=== PATIENT | male | born 1940 | race Caucasian/White ===

== ENCOUNTER 2018-11-01 12:45 | Inpatient (IN) | payer MEDICAID ==
[~2018-11-01] VITALS: Ht 162.6 cm; Wt 85.7 kg
[2018-11-01 13:00] VITALS: BP 142/96
--- NOTE | 2018-11-01 14:25 | NUR ---
PT TO ER BED 1
--- NOTE | 2018-11-01 14:45 | NUR ---
PT IS A 78 Y/O MALE WHO PRESENTS TO THE ED C/O CHEST PAIN. PER PT WAS REFERRED BY PCP. PT STATES THAT I HAVE FLUID IN MY LUNGS. PT REPORTS 8/10 ACHING CHEST PAIN THAT DOES NOT RADIATE. PT DENIES SOB, N/V/D. PT AWAKE AND ALERT, RR EVEN/UNLABORED. PT REPOSITIONED FOR COMFORT, BED IN LOWEST POSITION. ER MD DR. PILLAI NOTIFIED. WILL CONTINUE TO MONITOR. PMH---HF, HTN NKA
[2018-11-01 15:58] LABS: BASOPHILS % (AUTO) 0.5 % (0.0-2.0); EOSINOPHILS % (AUTO) 0.7 % (0.0-4.0); HEMATOCRIT 37.8 % (36-52); HEMOGLOBIN 12.1 g/dL (12.0-18.0); LYMPHOCYTES # (AUTO) 1.7 K/uL (2.0-11.5); LYMPHOCYTES % (AUTO) 27.3 % (20.5-51.1); MEAN CORPUSCULAR HEMOGLOBIN 30 pg (27-31); MEAN CORPUSCULAR HGB CONC 32 g/dL (33-37); MEAN CORPUSCULAR VOLUME 93.5 fL (80-94); MONOCYTES # (AUTO) 0.8 K/uL (0.8-1.0); MONOCYTES % (AUTO) 12.8 % (1.7-9.3); NEUTROPHILS # (AUTO) 3.6 K/uL (1.8-7.7); NEUTROPHILS % (AUTO) 58.7 % (42.2-75.2); PLATELET COUNT (AUTO) 212 K/uL (140-450); RED BLOOD CELL COUNT(AUTO) 4.04 MIL/uL (4.20-6.10); RED CELL DISTRIBUTION WIDTH 15.5 % (11.6-13.7); WHITE BLOOD COUNT (AUTO) 6.1 K/uL (4.8-10.8)
[2018-11-01 16:16] LABS: ANION GAP 14.9 (8-16); CARBON DIOXIDE 28.1 mmol/L (21-32); CHLORIDE 106 mmol/L (98-107); CREATININE 1.1 mg/dL (0.7-1.3); GLUCOSE 96 mg/dL (74-106); SODIUM SERUM 145 mmol/L (136-145); UREA NITROGEN, BLOOD 31 mg/dL (7-18)
[2018-11-01 16:18] LABS: ALBUMIN 3.4 g/dL (3.4-5.0); ASPARTATE AMINOTRANSFERASE 33 U/L (15-37); TOTAL BILIRUBIN 1.5 mg/dL (0.0-1.0)
--- NOTE | 2018-11-01 16:59 | NUR ---
Maricruz thompson in [facility] - 11/01/18 at [address] iDez evaluating patient at bedside.
[2018-11-01] MEDS ORDERED: FUROSEMIDE 40 MG/4 ML VIAL IVP SCH (17:00)
[2018-11-01] MEDS ORDERED: ACETAMINOPHEN 325 MG TAB PO PRN (17:20)
[2018-11-01] MEDS ORDERED: MELATONIN 3 MG TAB PO PRN (17:20)
[2018-11-01] MEDS ORDERED: HYDROcodone/APAP 7.5/325 MG 1 TAB PO PRN (17:20)
[2018-11-01] MEDS ORDERED: MEDICATION REC. PHARMACY CONS. 1 EA MISC MC PRN (17:20)
[2018-11-01] MEDS ORDERED: ONDANSETRON 4 MG/2 ML VIAL IVP PRN (17:20)
--- NOTE | 2018-11-01 18:00 | NUR ---
Patient will be admitted to care of DR. CALIXTO. Admited to TELE. Will go to room 127B. Belongings list completed. Report to [facility].
[2018-11-01 18:10] VITALS: BP 143/92
--- NOTE | 2018-11-01 18:10 | NUR ---
PT ARRIVED TO [facility] UNIT VIA ER BED, SPOUSE AT BEDSIDE. PT A/O ABLE TO COMMUNICATE NEEDS. PT DENIES PAIN, DENIES CP, DENIES SOB. ORIENTED TO ROOM AND UNIT. NO S/S OF ACUTE DISTRESS NOTED AT THIS TIME, CALL LIGHT AND PERSONAL ITEMS WITHIN REACH, WILL CONTINUE TO MONITOR.
--- NOTE | 2018-11-01 19:31 | NUR ---
PT AWAKE A/O ABLE TO COMMUNICATE NEEDS, NO S/S OF ACUTE DISTRESS NOTED AT THIS TIME, CALL LIGHT AND PERSONAL ITEMS WITHIN REACH, REPORT ENDORSED TO ONCOMING NURSE.
--- NOTE | 2018-11-01 19:35 | NUR ---
RECEIVED PT AM SHIFT NURSE AND PT AWAKE, ALERT, O X 4. PT IN BED, SEMI ECKERT'S POSITION PT AMBULATORY.ONGOING HISTORY TAKEN USING LABORER/GRADE CHECK ADOLFO LOPEZ # [id number]. W/ AT BEDSIDE, AND RESIDENT ASSESSMENT DONE, PT ONGOING ASSESSMENT FOR FALL RISK. POC REVIEWED. ORIENTED TO UNIT.PLACED CALL LIGHT AT BEDSIDE. DIM LIGHTS.
[2018-11-01 19:37] LABS: FREE T4 (FREE THYROXINE) 1.5 ng/dL (0.76-1.46); MAGNESIUM 2.1 mg/dL (1.8-2.4); PHOSPHORUS 3.5 mg/dL (2.5-4.9); THYROID STIMULATING HORMONE 0.5 uIU/mL (0.34-3.74)
[2018-11-01 19:41] LABS: PROTHROMBIN TIME 11.8 secs (10.8-13.4)
--- NOTE | 2018-11-01 19:57 | NUR ---
PT AMBULATORY W/ SB ASSIST, ON FALL RISK. FALL RISK PROTOCOL IN PLACE
[2018-11-01 20:00] VITALS: BP 143/92
[2018-11-01] MEDS ORDERED: CARVEDILOL 6.25 MG TAB PO SCH (21:00)
[2018-11-01] MEDS: NACL 0.9% 1,000 ML IV SCH (21:43)
[2018-11-01] MEDS: ATORVASTATIN 20 MG TAB PO SCH (21:46)
[2018-11-01] MEDS: DOCUSATE SODIUM 100 MG GELCAP PO SCH (21:47)
[2018-11-01] MEDS ORDERED: PROMETHAZINE DM 6.25/15MG-5ML ORASYR PO PRN (22:10)
[2018-11-01 22:57] LABS: APPEARANCE,URINE CLEAR (CLEAR); BILIRUBIN,URINE NEGATIVE (NEGATIVE); BLOOD, URINE TRACE-I (NEGATIVE); COLOR,URINE YELLOW (YELLOW); LEUKOCYTE ESTERASE ,URINE NEGATIVE (NEGATIVE); NITRITE, URINE NEGATIVE (NEGATIVE); UGLUCOSE NEGATIVE (NEGATIVE)
[2018-11-01 23:18] LABS: RBC,URINE 0-5 /HPF (0-5); WBC,URINE 0-5 /HPF (0-5)
[2018-11-02] VITALS: BP 120/70
[2018-11-02 04:00] VITALS: BP 127/76
[2018-11-02] MEDS: PANTOPRAZOLE 40 MG TABEC PO SCH (05:45)
--- NOTE | 2018-11-02 05:50 | NUR ---
REVIEWED EKG ORDER WITH DR JENELLE WRIGHT REASON FOR EXAM: CHEST R/O ACS
[2018-11-02 06:29] LABS: ANION GAP 12.2 (8-16); CARBON DIOXIDE 28.4 mmol/L (21-32); CHLORIDE 107 mmol/L (98-107); CREATININE 1.2 mg/dL (0.7-1.3); GLUCOSE 97 mg/dL (74-106); POTASSIUM 3.6 mmol/L (3.5-5.1); SODIUM SERUM 144 mmol/L (136-145); UREA NITROGEN, BLOOD 29 mg/dL (7-18)
[2018-11-02] MEDS ORDERED: LANSOPRAZOLE 30 MG CAPDR PO SCH (06:30)
[2018-11-02 06:44] LABS: CHOL/HDL RATIO 3.2 (1-4.5); PHOSPHORUS 3.8 mg/dL (2.5-4.9)
--- NOTE | 2018-11-02 07:03 | NUR ---
PT AWAKE IN BED WILL ENDORSE TO NEXT SHIFT FOR CONTINUITY OF CARE. PT IN STABLE CONDITION
--- NOTE | 2018-11-02 07:04 | NUR ---
RECEIVED BEDSIDE REPORT FROM INSPECTOR FINAL ASSEMBLY CONVEYOR LINE NURSE. PATIENT IS AWAKE, ALERT AND ORIENTEDX4. NEPALESE SPEAKER. NO SIGNS OF DISTRESS ON RA. GAIT IS STEADY. PATIENT IS CONTINENT. SKIN IS INTACT. IV ON L FA 20G INFUSING NS AT 10. CLEAN, DRY AND INTACT. TELE MONITOR IN PLACE. PATIENT ABLE TO MAKE NEEDS KNOWN. WILL CONTINUE TO MONITOR. BED IN LOW POSITION.
[2018-11-02 07:39] LABS: BASOPHILS % (AUTO) 0.5 % (0.0-2.0); EOSINOPHILS # (AUTO) 0.1 K/uL (0-0.4); EOSINOPHILS % (AUTO) 1.5 % (0.0-4.0); HEMATOCRIT 36.2 % (36-52); HEMOGLOBIN 11.8 g/dL (12.0-18.0); LYMPHOCYTES # (AUTO) 1.4 K/uL (2.0-11.5); LYMPHOCYTES % (AUTO) 22.7 % (20.5-51.1); MEAN CORPUSCULAR HEMOGLOBIN 30 pg (27-31); MEAN CORPUSCULAR HGB CONC 32 g/dL (33-37); MEAN CORPUSCULAR VOLUME 92.7 fL (80-94); MONOCYTES # (AUTO) 0.8 K/uL (0.8-1.0); MONOCYTES % (AUTO) 13.5 % (1.7-9.3); NEUTROPHILS # (AUTO) 3.8 K/uL (1.8-7.7); NEUTROPHILS % (AUTO) 61.8 % (42.2-75.2); PLATELET COUNT (AUTO) 207 K/uL (140-450); RED BLOOD CELL COUNT(AUTO) 3.91 MIL/uL (4.20-6.10); RED CELL DISTRIBUTION WIDTH 15.4 % (11.6-13.7); WHITE BLOOD COUNT (AUTO) 6.1 K/uL (4.8-10.8)
[2018-11-02 08:00] VITALS: BP 125/81
--- NOTE | 2018-11-02 08:20 | NUR ---
PATIENT HAS BEEN SCREENED AND CATEGORIZED MODERATE NUTRITION RISK. PATIENT WILL BE SEEN WITHIN 3-5 DAYS OF ADMISSION. 11/05/18[address]
[2018-11-02] MEDS: CARVEDILOL 6.25 MG TAB PO SCH ×2 (08:54→17:49)
[2018-11-02] MEDS: DOCUSATE SODIUM 100 MG GELCAP PO SCH ×2 (08:54→20:35)
[2018-11-02] MEDS: LOSARTAN 25 MG TAB PO SCH (08:55)
[2018-11-02] MEDS ORDERED: FUROSEMIDE 20 MG/2 ML VIAL IVP ONE (09:00)
--- NOTE | 2018-11-02 09:06 | NUR ---
ADMINISTERED MEDS. EDUCATED PATIENT ON SIDE EFFECTS. PATIENT TOLERATED WELL AND VERBALIZED UNDERSTANDING. PATIENT ABLE TO MAKE NEEDS KNOWN. IS AT BEDSIDE. CALL LIGHT WITHIN REACH. WILL CONTINUE TO MONITOR
--- NOTE | 2018-11-02 11:20 | NUR ---
PATIENT AMBULATED TO THE RESTROOM. GAIT IS STEADY. WILL CONTINUE TO MONITOR THE PATIENT.
[2018-11-02 12:00] VITALS: BP 120/68
--- NOTE | 2018-11-02 12:01 | NUR ---
FAMILY AT BEDSIDE. PATIENT IN NO DISTRESS. CALL LIGHT WITHIN REACH. WILL CONTINUE TO MONITOR THE PATIENT
--- NOTE | 2018-11-02 13:31 | NUR ---
PATIENT JUST FINISHED LUNCH. NO DISTRESS AT THIS TIME. IN BED RESTING COMFORTABLY. WILL CONTINUE TO MONITOR THE PATIENT
--- NOTE | 2018-11-02 14:44 | NUR ---
PATIENT LAYING IN BED. NO COMPLAINTS AT THIS TIME. BED IN LOW POSITION. CALL LIGHT WITHIN REACH. WILL CONTINUE TO MONITOR THE PATIENT
--- NOTE | 2018-11-02 15:24 | NUR ---
PATIENT IN BED. NO SIGNS OF DISTRESS, FAMILY AT BEDSIDE
[2018-11-02 16:00] VITALS: BP 120/77
[2018-11-02] MEDS: NACL 0.9% 1,000 ML IV SCH (17:20)
--- NOTE | 2018-11-02 17:49 | NUR ---
ADMINISTERED [facility]. EDUCATED ON SIDE EFFECTS. PATIENT TOLERATED WELL. PATIENT SITTING IN CHAIR IN NO DISTRESS. WILL CONTINUE TO MONITOR THE PATIENT
--- NOTE | 2018-11-02 19:06 | NUR ---
GAVE BEDSIDE REPORT TO SUBSCRIPTION CREW LEADER NURSE. PATIENT ENDORSED IN STABLE CONDITION
--- NOTE | 2018-11-02 19:15 | NUR ---
RECEIVED PT FROM VISHNU RN PT SYRIAC SPEAKER AAOX4, AMBULATORY HL ON LEFT AC PATENT, ON TELMETRY SR DENIES ANY PAIN INITIAL ASSESSMENT DONE
[2018-11-02 20:00] VITALS: BP 127/77
[2018-11-02] MEDS: ATORVASTATIN 20 MG TAB PO SCH (20:34)
--- NOTE | 2018-11-02 21:00 | NUR ---
PT AMBULATES AROUND THE UNIT HOLDING IV POLE RELATIVE AT PT SIDE
--- NOTE | 2018-11-03 | NUR ---
PT HAS BEEN MONITORING CLOSE SLEEPING WELL AT THIS TME NOT SIGNS OF DISTRESS NOTED , ON TELEMETRY SR
--- NOTE | 2018-11-03 02:57 | NUR ---
REPOSITIONED Q2H HIMSELF ON TELE SR PT REMAIN STABLE AT THIS TIME.
[2018-11-03 04:00] VITALS: BP 130/75
--- NOTE | 2018-11-03 05:13 | NUR ---
SPONGE BATH GIVEN LINEN CHANGED REPOSITIONED ON TELE SR BBB NOT DISTRESS NOTED
[2018-11-03] MEDS: PANTOPRAZOLE 40 MG TABEC PO SCH (05:47)
--- NOTE | 2018-11-03 06:48 | NUR ---
PT VERBALIZED TOFEELS BETTER DENIES ANY PAIN ON TELEMETRY SR PT WILL BE ENDORSED TODAY SHIFT FOR CONTINUITY OF CARE .
[2018-11-03 07:01] LABS: BASOPHILS % (AUTO) 0.6 % (0.0-2.0); EOSINOPHILS # (AUTO) 0.2 K/uL (0-0.4); EOSINOPHILS % (AUTO) 2.1 % (0.0-4.0); HEMATOCRIT 38.3 % (36-52); HEMOGLOBIN 12.5 g/dL (12.0-18.0); LYMPHOCYTES # (AUTO) 1.6 K/uL (2.0-11.5); LYMPHOCYTES % (AUTO) 21.9 % (20.5-51.1); MEAN CORPUSCULAR HEMOGLOBIN 30 pg (27-31); MEAN CORPUSCULAR HGB CONC 33 g/dL (33-37); MEAN CORPUSCULAR VOLUME 92.9 fL (80-94); MONOCYTES # (AUTO) 0.9 K/uL (0.8-1.0); MONOCYTES % (AUTO) 12.9 % (1.7-9.3); NEUTROPHILS # (AUTO) 4.4 K/uL (1.8-7.7); NEUTROPHILS % (AUTO) 62.5 % (42.2-75.2); PLATELET COUNT (AUTO) 204 K/uL (140-450); RED BLOOD CELL COUNT(AUTO) 4.12 MIL/uL (4.20-6.10); RED CELL DISTRIBUTION WIDTH 15.2 % (11.6-13.7); WHITE BLOOD COUNT (AUTO) 7.1 K/uL (4.8-10.8)
[2018-11-03 07:05] LABS: CARBON DIOXIDE 28.8 mmol/L (21-32); CHLORIDE 105 mmol/L (98-107); CREATININE 1.1 mg/dL (0.7-1.3); GLUCOSE 93 mg/dL (74-106); POTASSIUM 3.8 mmol/L (3.5-5.1); SODIUM SERUM 144 mmol/L (136-145); UREA NITROGEN, BLOOD 22 mg/dL (7-18)
[2018-11-03 07:18] LABS: MAGNESIUM 2.1 mg/dL (1.8-2.4); PHOSPHORUS 3.4 mg/dL (2.5-4.9)
--- NOTE | 2018-11-03 07:25 | NUR ---
Received bedside report from pm nurse Mary. Pt sitting up at edge of bed, no c/o discomfort, no signs of distress. Lt forearm IV saline lock, intact & asymptomatic. Call light within reach.
[2018-11-03 08:00] VITALS: BP 125/77
[2018-11-03] MEDS: CARVEDILOL 6.25 MG TAB PO SCH (08:31)
[2018-11-03] MEDS: LOSARTAN 25 MG TAB PO SCH (08:31)
[2018-11-03] MEDS: DOCUSATE SODIUM 100 MG GELCAP PO SCH (08:31)
[2018-11-03] MEDS ORDERED: FUROSEMIDE 40 MG TAB PO SCH (09:00)
[2018-11-03] MEDS ORDERED: ATOR20TA40 PO (10:47)
[2018-11-03] MEDS ORDERED: FURO40TA9 PO (10:47)
[2018-11-03] MEDS ORDERED: POTA8TER12 PO (10:47)
[2018-11-03] MEDS ORDERED: CARV6.252 PO (10:47)
[2018-11-03] MEDS ORDERED: LOSA25TA1 PO (10:47)
[2018-11-03] MEDS ORDERED: ASPI-1205 PO (11:01)
--- NOTE | 2018-11-03 12:00 | NUR ---
Verbal & written discharge instructions provided to pt & his son, with [employer] belarusian/[place]one[place] personal injury specialist Nadia #[phone]. Pt verbalized understanding & agree with discharge plans. Left forearm IV access discontinued.
--- NOTE | 2018-11-03 12:20 | NUR ---
Pt discharged to home at this time, accompanied by son. Pt stable, amb off unit with steady gait. All belongings with pt upon departure. Name bands removed.
== END 2018-11-03 12:20 | disposition home or self-care (01) | DRG 243 ==
LOC: MED 12:45 → MMU 17:20
PROVIDERS: ADMIT General Practice; ATTEND General Practice
DX: K21.9 Gastro-esophageal reflux disease without esophagitis (principal); I50.43 Acute on chronic combined systolic (congestive) and diastolic (congestive) heart failure; E05.80 Other thyrotoxicosis without thyrotoxic crisis or storm; I11.0 Hypertensive heart disease with heart failure; I49.3 Ventricular premature depolarization; R05 Cough; E80.6 Other disorders of bilirubin metabolism; E66.9 Obesity, unspecified; Z68.32 Body mass index [BMI] 32.0-32.9, adult; Z71.3 Dietary counseling and surveillance
CPT/HCPCS: 36415; 71045; 76700; 80048; 80053; 81001; 81003; 82150; 83036; 83690; 83735; 83880; 84100; 84439; 84443; 84484; 85025; 85610; 85730; 87081; 93005; 96374; 99291; J1644; J1940; J7030; Q0092

== ENCOUNTER 2020-06-10 15:37 | Inpatient (IN) | payer MEDICAID, SELFPAY ==
[~2020-06-10] VITALS: Ht 154.9 cm; Wt 73.0 kg
[~2020-06-10 15:37] MED LIST: ASPI-1205 PO; ATOR20TA40 PO; CARV6.252 PO; FURO40TA9 PO; LOSA25TA1 PO; POTA8TER12 PO
[2020-06-10 15:52] VITALS: BP 122/73
--- NOTE | 2020-06-10 16:00 | NUR ---
PT C/O SOB, DRY COUGH, HEADACHE & FEVER. PT PRESENTS WITH FEVER OF 100.5 AND TACHYCARDIA AT 120S. NO RESPIRATORY DISTRESS OR ACCESSORY MUSCLE USE. PT BREATHS DEEP WITH SYMMETRICAL CHEST RAISE JANICE. DENIES N/V/D OR CP. PT RATES THE HEADACHE IS 7/10 AT THIS TIME. PMH: PROSTATE CA, HTN, ASTHMA, GERD, HIATAL HERNIA
[2020-06-10] MEDS ORDERED: AZITHROMYCIN 1,000 MG in DEXTROSE 5% 500 ML IV ONE (16:15)
[2020-06-10] MEDS ORDERED: DEXAMETHASONE 10 MG/ML VIAL IVP ONE (16:15)
[2020-06-10] MEDS ORDERED: ZINC SULF 220 MG CAP PO ONE (16:15)
[2020-06-10 16:33] LABS: BASOPHILS % (AUTO) 0.4 % (0.0-2.0); EOSINOPHILS % (AUTO) 0.1 % (0.0-4.0); HEMATOCRIT 41.8 % (36-52); LYMPHOCYTES # (AUTO) 0.9 K/uL (2.0-11.5); LYMPHOCYTES % (AUTO) 12.4 % (20.5-51.1); MEAN CORPUSCULAR HEMOGLOBIN 31 pg (27-31); MEAN CORPUSCULAR HGB CONC 34 g/dL (33-37); MEAN CORPUSCULAR VOLUME 92.2 fL (80-94); MONOCYTES # (AUTO) 0.5 K/uL (0.8-1.0); MONOCYTES % (AUTO) 7.2 % (1.7-9.3); NEUTROPHILS # (AUTO) 5.6 K/uL (1.8-7.7); NEUTROPHILS % (AUTO) 79.9 % (42.2-75.2); PLATELET COUNT (AUTO) 228 K/uL (140-450); RED BLOOD CELL COUNT(AUTO) 4.53 MIL/uL (4.20-6.10); RED CELL DISTRIBUTION WIDTH 15.2 % (11.6-13.7); WHITE BLOOD COUNT (AUTO) 7.1 K/uL (4.8-10.8)
--- NOTE | 2020-06-10 16:37 | NUR ---
danica, novel, rsv, and flu swabs obtained and sent to the lab.
--- NOTE | 2020-06-10 16:39 | NUR ---
Xray is at bedside.
[2020-06-10] MEDS ORDERED: AZTREONAM 1,000 MG VIAL ONE (16:40)
[2020-06-10] MEDS ORDERED: AZITHROMYCIN 500 MG INJ VIAL IV ONE (16:41)
[2020-06-10 16:47] LABS: ALBUMIN 3.3 g/dL (3.4-5.0); ANION GAP 13.6 (8-16); ASPARTATE AMINOTRANSFERASE 22 U/L (15-37); CHLORIDE 100 mmol/L (98-107); CREATININE 1.1 mg/dL (0.6-1.3); GLUCOSE 110 mg/dL (74-106); POTASSIUM 3.6 mmol/L (3.5-5.1); SODIUM SERUM 135 mmol/L (136-145); TOTAL BILIRUBIN 0.7 mg/dL (0.0-1.0); UREA NITROGEN, BLOOD 22 mg/dL (7-18)
[2020-06-10 16:48] LABS: PROTHROMBIN TIME 10.2 secs (10.8-13.4)
[2020-06-10 17:10] LABS: C-REACTIVE PROTEIN QUANT 13.5 mg/dL (0.0-0.9)
[2020-06-10 17:13] LABS: RSV NEGATIVE (NEGATIVE)
[2020-06-10 17:13] LABS: LACTATE DEHYDROGENASE 322 U/L (85-227)
[2020-06-10 17:43] LABS: APPEARANCE,URINE CLEAR (CLEAR); BILIRUBIN,URINE NEGATIVE (NEGATIVE); BLOOD, URINE TRACE-I (NEGATIVE); COLOR,URINE YELLOW (YELLOW); LEUKOCYTE ESTERASE ,URINE NEGATIVE (NEGATIVE); NITRITE, URINE NEGATIVE (NEGATIVE); PH,URINE 5.5 (5.0-9.0); UGLUCOSE NEGATIVE (NEGATIVE)
[2020-06-10 18:02] LABS: RBC,URINE 0-5 /HPF (0-5); WBC,URINE NONE SEEN /HPF (0-5)
--- NOTE | 2020-06-10 19:19 | NUR ---
REPORT RECEIVED FROM ROBBIE KASPER FOR CONTINUATION OF CARE.
--- NOTE | 2020-06-10 19:19 | NUR ---
Pt report given to ROBBIE Mccray. Transfer of care at this time.
[2020-06-10] MEDS ORDERED: HYDROcodone/APAP 7.5/325 MG 1 TAB PO PRN (19:40)
[2020-06-10] MEDS ORDERED: guaiFENesin DM 200/20 MG-10 ML 10 ML UDC PO PRN (19:40)
[2020-06-10] MEDS ORDERED: ACETAMINOPHEN 325 MG TAB PO PRN (19:40)
[2020-06-10] MEDS ORDERED: POTASSIUM CHLORIDE 10 MEQ TABER PO PRN (19:40)
[2020-06-10] MEDS ORDERED: ZOLPIDEM 5 MG TAB PO PRN (19:40)
[2020-06-10] MEDS ORDERED: DOCUSATE SODIUM 100 MG GELCAP PO PRN (19:40)
[2020-06-10] MEDS ORDERED: ONDANSETRON 4 MG/2 ML VIAL IM/IVP PRN (19:40)
[2020-06-10] MEDS ORDERED: ALBUTEROL SULFATE/IPRATROPIU 3 ML SOL IH PRN (19:45)
[2020-06-10] MEDS ORDERED: ALBUTEROL HFA MDI 90 MCG/ACTUATION 8 GM INH PRN (19:45)
[2020-06-10 20:12] LABS: BARBITURATE, URINE NEGATIVE ng/ml (NEG <=200); BENZODIAZEPINE, URINE NEGATIVE ng/mL (NEG <=200); CANNABINOID, URINE NEGATIVE ng/mL (NEG <=50); COCAINE, URINE NEGATIVE ng/mL (NEG <=300); PHENCYCLIDINE SCREEN,URINE NEGATIVE ng/mL (NEG <=25)
[2020-06-10 20:13] LABS: OPIATE, URINE NEGATIVE ng/mL (NEG <=2000)
[2020-06-10 20:15] LABS: FREE T4 (FREE THYROXINE) 1.19 ng/dL (0.76-1.46); MAGNESIUM 1.8 mg/dL (1.8-2.4); PHOSPHORUS 2.8 mg/dL (2.5-4.9); THYROID STIMULATING HORMONE 0.53 uIU/mL (0.34-3.74)
--- NOTE | 2020-06-10 20:38 | NUR ---
PT RESTING IN BED , LOCKED AND IN LOWEST POSITION, HOB ELEVATED, SIDE RAIL X1. RR EVEN AND UNLABORED. VSS. NO ACUTE DISTRESS NOTED AT THIS TIME.
[2020-06-10] MEDS ORDERED: cefTRIAXone 1,000 MG VIAL ONE (21:45)
[2020-06-10] MEDS: NACL 0.9% 1,000 ML IV SCH (21:52)
--- NOTE | 2020-06-10 22:46 | NUR ---
PT RESTING COMFORTABLY IN BED, LOCKED AND IN LOWEST POSITION, HOB ELEVATED, SIDE RAIL X1. RR EVEN AND UNLABORED, VISIBLE RISE AND FALL OF CHEST. PT AROUSABLE TO VERBAL STIMULATION. VSS. NO ACUTE DISTRESS NOTED AT THIS TIME.
--- NOTE | 2020-06-10 23:10 | NUR ---
PER PT AUTHORIZATION , SPOKE W/ PT REGARDING PT STATUS.
[2020-06-11] MEDS: ALBUTEROL SULFATE/IPRATROPIU 3 ML SOL IH SCH ×3 (00:08→19:00)
--- NOTE | 2020-06-11 00:09 | NUR ---
NO DUONEB TREATMENT GIVEN DUE TO POSITIVE COVID
--- NOTE | 2020-06-11 00:15 | NUR ---
PT STATES HE IS FEELING OKAY AT THIS TIME. NO ACUTE DISTRES NOTED AT THIS TIME.
--- NOTE | 2020-06-11 02:28 | NUR ---
PT SLEEPING IN BED, LOCKED AND IN LOWEST POSITION, HOB ELEVATED , SIDE RAIL X1. VISIBLE RISE AND FALL OF CHEST, RR EVEN AND UNLABORED. SAO2 96 % . NO ACUTE DISTRESS NOTED AT THIS TIME.
--- NOTE | 2020-06-11 04:01 | NUR ---
PT SLEEPING IN BED, LOCKED AND IN LOWEST POSITION, HOB ELEVATED , SIDE RAIL X1. VISIBLE RISE AND FALL OF CHEST, RR EVEN AND UNLABORED, AROUSABLE TO VERBAL STIMULATION. VSS. NO ACUTE DISTRESS NOTED AT THIS TIME.
[2020-06-11 06:05] LABS: BASOPHILS % (AUTO) 0.2 % (0.0-2.0); HEMATOCRIT 44.5 % (36-52); HEMOGLOBIN 14.8 g/dL (12.0-18.0); LYMPHOCYTES # (AUTO) 0.8 K/uL (2.0-11.5); LYMPHOCYTES % (AUTO) 14.9 % (20.5-51.1); MEAN CORPUSCULAR HEMOGLOBIN 31 pg (27-31); MEAN CORPUSCULAR HGB CONC 33 g/dL (33-37); MEAN CORPUSCULAR VOLUME 93.4 fL (80-94); MONOCYTES # (AUTO) 0.3 K/uL (0.8-1.0); MONOCYTES % (AUTO) 6.6 % (1.7-9.3); NEUTROPHILS % (AUTO) 78.3 % (42.2-75.2); PLATELET COUNT (AUTO) 232 K/uL (140-450); RED BLOOD CELL COUNT(AUTO) 4.77 MIL/uL (4.20-6.10); RED CELL DISTRIBUTION WIDTH 14.9 % (11.6-13.7); WHITE BLOOD COUNT (AUTO) 5.1 K/uL (4.8-10.8)
--- NOTE | 2020-06-11 06:31 | NUR ---
PT RESTING IN BED, VSS. RR EVEN AND UNLABORED. NO ACUTE DISTRESS NOTED AT THIS TIME.
[2020-06-11 06:57] LABS: ANION GAP 12.8 (8-16); CARBON DIOXIDE 26.5 mmol/L (21-32); CHLORIDE 103 mmol/L (98-107); GLUCOSE 142 mg/dL (74-106); POTASSIUM 4.3 mmol/L (3.5-5.1); SODIUM SERUM 138 mmol/L (136-145); UREA NITROGEN, BLOOD 22 mg/dL (7-18)
--- NOTE | 2020-06-11 07:15 | NUR ---
REPORT GIVEN TO ROBBIE KASPER FOR TRANSFER OF CARE.
--- NOTE | 2020-06-11 07:16 | NUR ---
REPORT RECEIVED FROM ROBBIE SCHMIDT.
--- NOTE | 2020-06-11 07:48 | NUR ---
Patient will be admitted to care of Dr. Diez. Admited to TELE. Will go to room 121A. Belongings list completed. Report to ROBBIE Mcduffie.
--- NOTE | 2020-06-11 08:30 | NUR ---
PT HAS BEEN SENT TO TELE 121A VIA [employer]. PT HAS BEEN ON TELE BOX. NURSE ROBBIE AMARO MADE AWARE ABOUT PT'S ARRIVAL.
[2020-06-11 08:35] VITALS: BP 126/74
--- NOTE | 2020-06-11 08:35 | NUR ---
RECEIVED REPORT FROM EMERGENCY ROOM NURSE FOR CONTINUITY OF CARE. PATIENT IN STABLE CONDITION. RESPIRATIONS EVEN AND UNLABORED. IV INTACT AND PATENT. BED IN LOW POSITION. CALL LIGHT WITHIN REACH. WILL CONTINUE TO MONITOR.
[2020-06-11] MEDS ORDERED: AZITHROMYCIN 250 MG TAB PO SCH (09:00)
[2020-06-11] MEDS: PANTOPRAZOLE 40 MG TABEC PO SCH (09:08)
[2020-06-11] MEDS: ASCORBIC ACID 500 MG TAB PO SCH (09:08)
[2020-06-11] MEDS: ZINC SULF 220 MG CAP PO SCH (09:08)
--- NOTE | 2020-06-11 11:00 | NUR ---
PATIENT CALLED AT THIS TIME FOR UPDATE. PATIENT UPDATED ON THE TELEPHONE AT THIS TIME.
--- NOTE | 2020-06-11 12:06 | NUR ---
DC PLANNIN YRS OLD MALE PATIENT WAS ADMITTED FROM HOME WITH A DX OF COVID PNEUMONIA AND HYPOXIA. PATIENT HAS A HX OF GERD, HTN AND HIATAL HERNIA. CXR SHOWED SUBTLE BILATERAL PERIPHERAL PATCHY INFILTRATES SUSPICIOUS FOR COVID 19 INFECTION. RAPID COVID TEST POSITIVE AND PCR BLOOD AND URINE CULTURE PENDING. STARTED COVID PROTOCOL IVF, IV ABX ROCEPHIN AND AZITHROMYCIN AND DECADRON. CONSULTED WITH ID DR KRAUS AND DR RAUDEL WELLINGTON. DC PLAN TO G O HOME WHEN STABLE. CM TO FOLLOW Addendum: 06/13/20 at 1231 by Stephie Duffy RN DC PLANNING: PCR COVID TEST POSITIVE, SEEN BY DR KRAUS ID, ORDERED CONVALESCENT PLASMA AND REMDESIVIR IV, PAPER BALING MACHINE OPERATOR AND AMISH CONTINUE CURRENT THERAPY. CURRENTLY ON O2 2L/NC SATING 90% DC PLAN TO GO HOME WHEN STABLE CM TO FOLLOW
[2020-06-11] MEDS: NACL 0.9% 1,000 ML IV SCH (12:20)
[2020-06-11] MEDS ORDERED: FUROSEMIDE 100 MG/10 ML VIAL IV SCH (13:00)
--- NOTE | 2020-06-11 13:01 | NUR ---
PATIENT FINISHING WITH LUNCH AT THIS TIME. PATIENT TOLERATED WELL. BED IN LOW POSITION. CALL LIGHT WITHIN REACH. WILL CONTINUE TO MONITOR.
--- NOTE | 2020-06-11 13:45 | NUR ---
SOCIAL WORK NOTE: GUANAKITO WAS UNABLE TO MEET PATIENT AT BEDSIDE DUE TO MEDICAL CONDITION. GUANAKITO CONTACTED MARGE GAITAN [phone] AND LEFT VM. GUANAKITO WILL FOLLOW UP.
--- NOTE | 2020-06-11 15:32 | NUR ---
PATIENT WATCHING TV AT THIS TIME. BED IN LOW POSITION. CALL LIGHT WITHIN REACH. WILL CONTINUE TO MONITOR.
[2020-06-11] MEDS ORDERED: remdesivir COMMUNICATION ORDER 1 EA MISC MC PRN (18:30)
--- NOTE | 2020-06-11 19:15 | NUR ---
GAVE REPORT TO SOLAR ENERGY ENGINEER NURSE FOR CONTINUITY OF CARE. PATIENT IN STABLE CONDITION.
--- NOTE | 2020-06-11 19:25 | NUR ---
RECEIVED PT IN STABLE CONDITION FROM AM NURSE. PT IS AWAKE,ALERT AND ORIENTED X4. FRENCH SPEAKING. ON TELE MONITOR. NO C/O ANY DISCOMFORT NOR ANY RESPIRATORY DISTRESS NOTED. ON RA 94% O2 SAT. WITH IVF INFUSING WELL ON THE LT [id number]. PLAN OF CARE DISCUSSED AND VERBALIZED UNDERSTANDING. FREQ ROUNDS NEEDED. .BED ON LOW POSITION. SIDE RAILS UP X2 CALL LIGHT WITHIN REACH. WILL CONTINUE TO MONITOR.
[2020-06-11] MEDS ORDERED: FUROSEMIDE 100 MG/10 ML VIAL ONE (19:44)
[2020-06-11] MEDS: ATORVASTATIN 20 MG TAB PO SCH (19:45)
--- NOTE | 2020-06-11 21:30 | NUR ---
CHECKED ON PT. NO C/O ANY DISCOMFORT. DUE MEDS GIVEN. TOLERATED WELL.
[2020-06-11 21:41] VITALS: BP 106/66
[2020-06-11] MEDS: METOPROLOL 25 MG TAB PO SCH (21:44)
--- NOTE | 2020-06-11 23:00 | NUR ---
CHECKED ON PT . SLEEPING AT THIS TIME. NO S/S OF ANY DISTRESS NOTED. WILL CONTINUE TO MONITOR.
[2020-06-12] VITALS: BP 119/69
[2020-06-12] MEDS: ALBUTEROL SULFATE/IPRATROPIU 3 ML SOL IH SCH ×3 (01:00→13:00)
--- NOTE | 2020-06-12 01:00 | NUR ---
MADE ROUNDS. PT SLEEPING WITH NO S/S OF ANY DISCOMFORT NOTED.
--- NOTE | 2020-06-12 03:00 | NUR ---
MADE ROUNDS. PT SLEEPING WITH NO S/S OF ANY DISTRESS NOR ANY DISCOMFORT NOTED.
[2020-06-12 04:00] VITALS: BP 109/65
--- NOTE | 2020-06-12 04:30 | NUR ---
PT MADE AWARE ABOUT THE NEED FOR 1 UNIT FFP TRANSFUSION. VERBALIZED UNDERSTANDING. CONSENT SIGNED.
[2020-06-12 05:57] LABS: HEMATOCRIT 40.5 % (36-52); HEMOGLOBIN 13.2 g/dL (12.0-18.0); LYMPHOCYTES # (AUTO) 0.6 K/uL (2.0-11.5); LYMPHOCYTES % (AUTO) 5.1 % (20.5-51.1); MEAN CORPUSCULAR HEMOGLOBIN 30 pg (27-31); MEAN CORPUSCULAR HGB CONC 33 g/dL (33-37); MEAN CORPUSCULAR VOLUME 92.7 fL (80-94); MONOCYTES # (AUTO) 0.6 K/uL (0.8-1.0); MONOCYTES % (AUTO) 5.6 % (1.7-9.3); NEUTROPHILS # (AUTO) 9.8 K/uL (1.8-7.7); NEUTROPHILS % (AUTO) 89.3 % (42.2-75.2); PLATELET COUNT (AUTO) 260 K/uL (140-450); RED BLOOD CELL COUNT(AUTO) 4.37 MIL/uL (4.20-6.10); RED CELL DISTRIBUTION WIDTH 15.2 % (11.6-13.7)
[2020-06-12 06:25] LABS: ALBUMIN 2.9 g/dL (3.4-5.0); ANION GAP 13.8 (8-16); ASPARTATE AMINOTRANSFERASE 23 U/L (15-37); CARBON DIOXIDE 25.4 mmol/L (21-32); CHLORIDE 104 mmol/L (98-107); GLUCOSE 105 mg/dL (74-106); POTASSIUM 4.2 mmol/L (3.5-5.1); SODIUM SERUM 139 mmol/L (136-145); TOTAL BILIRUBIN 0.6 mg/dL (0.0-1.0); UREA NITROGEN, BLOOD 30 mg/dL (7-18)
--- NOTE | 2020-06-12 06:25 | NUR ---
MADE ROUNDS. PT IS ASLEEP. NO S/S OF ANY DISCOMFORT NOTED.
--- NOTE | 2020-06-12 07:15 | NUR ---
ENDORSED PT IN STABLE CONDITION TO AM NURSE.
--- NOTE | 2020-06-12 07:15 | NUR ---
RECEIVED PATIENT FROM NIGHT NURSE. PATIENT IN BED AWAKE AND ALERT. RESPONDING TO STAFF APPROPRIATELY. RESP EVEN AND UNLABORED ON ROOM AIR. DENIED OF PAIN AT THIS TIME. NO NOTED ACUTE S/S DISTRESS. PATIENT ABLE TO MAKE NEEDS KNOWN. DROPLET PRECAUTION OBSERVED. SAFETY MEASURES IN PLACE. CALL LIGHT WITHIN REACH. WILL CONTINUE TO MONITOR.
[2020-06-12 08:00] VITALS: BP 148/85
[2020-06-12 08:10] LABS: T4 (THYROXINE) 7.3 ug/dL (4.5-12.0)
--- NOTE | 2020-06-12 08:49 | NUR ---
PATIENT HAS BEEN SCREENED AND CATEGORIZED MODERATE NUTRITION RISK. PATIENT WILL BE SEEN WITHIN 3-5 DAYS OF ADMISSION. 06/13/20 06/15/[address]
[2020-06-12] MEDS: FUROSEMIDE 40 MG/4 ML VIAL IVP SCH (08:57)
[2020-06-12] MEDS: lisinopriL 20 MG TAB PO SCH (08:57)
[2020-06-12] MEDS: ZINC SULF 220 MG CAP PO SCH (08:58)
[2020-06-12] MEDS: PANTOPRAZOLE 40 MG TABEC PO SCH (08:58)
[2020-06-12] MEDS: ASCORBIC ACID 500 MG TAB PO SCH (08:58)
[2020-06-12] MEDS: METOPROLOL 25 MG TAB PO SCH ×2 (08:58→20:44)
[2020-06-12] MEDS: POTASSIUM CHLORIDE 8 MEQ TABER PO SCH (08:59)
--- NOTE | 2020-06-12 09:15 | NUR ---
MORNING ROUTINE MEDICATIONS GIVEN. PATIENT TOLERATED WELL. PATIENT AWAKE, ALERT, AND ORIENTED X4. PATIENT SEEMED ANXIOUS AND BREATHING FAST, ON ROOM AIR O2SAT 87%. PATIENT WAS ENCOURAGED TO FOCUS HIS BREATHING. OXYGEN GIVEN VIA NC 4L AND O2SAT INCREASED TO 95%. PATIENT DENIED OF PAIN AT THIS TIME. LAC 18G INTACT AND PATENT, INFUSING NS 20ML/HR. LUNGS WHEEZES NOTED, INTERMITTENT DRY COUGHS. DENIED OF ANY SOB. SKIN IS WARM TO TOUCH AND INTACT. ABLE TO MAKE NEEDS KNOWN AND FOLLOW COMMANDS. PLAN OF CARE DISCUSSED WITH PATIENT. PATIENT VERBALIZED UNDERSTANDING. CALL LIGHT WITHIN REACH. WILL CONTINUE TO MONITOR.
--- NOTE | 2020-06-12 11:45 | NUR ---
PATIENT IN BED AWAKE AND ALERT. RESP EVEN AND UNLABORED AND IMPROVED ON 2L NC, O2SAT 97%. PATIENT IS CALMER AND LESS ANXIOUS. BREATHING IS SLOWER AND CONTROLLED. PATIENT DENIED OF PAIN AT THIS TIME. TEMP. 99.9 GIVEN COOLING MEASURES AND FLUID ENCOURAGED. PATIENT VERBALIZED UNDERSTANDING. PATIENT ABLE TO MAKE NEEDS KNOWN AND FOLLOW COMMANDS. CALL LIGHT WITHIN REACH. WILL CONTINUE TO MONITOR.
[2020-06-12 12:00] VITALS: BP 126/67
[2020-06-12] MEDS: NACL 0.9% 1,000 ML IV SCH (12:17)
--- NOTE | 2020-06-12 13:05 | NUR ---
TEMP 98.3 PATIENT AWAKE AND ALERT. DENIED OF PAIN AT THIS TIME. PATIENT ABLE TO AMBULATE TO THE BATHROOM WITHOUT ANY DIFFICULTY OR ASSIST. ABLE TO FOLLOW COMMANDS AND MAKE NEEDS KNOWN. CALL LIGHT WITHIN REACH. WILL CONTINUE TO MONITOR.
[2020-06-12] MEDS ORDERED: CLINICAL MONITORING MC PRN (13:40)
[2020-06-12] MEDS ORDERED: REMDESIVIR (EUA) 200 MG in NACL 0.9% 100 ML IV SCH (14:00)
--- NOTE | 2020-06-12 14:07 | NUR ---
SOCIAL WORK NOTE: Patient's Orientation Unable To Assess Information Provided By MARGE GAITAN - Comments SW WAS UNABLE TO MEET PATIENT AT BEDSIDE DUE TO MEDICAL CONDITION. SW COMPLETED ASSESSMENT WITH PATIENT'S MARGE. SW USED CAMPUS SUPERVISOR KENTRELL [phone] TO COMPLETE ASSESSMENT AND VERIFY DEMOGRAPHICS. Boat Rigger, Realtionship and Phone Number MARGE COVARRUBIAS [phone] Healthcare Power of Retail Training Manager No Does Patient Have a POLST No Identifying Problems No Social Work Triggers Is A Social Work Consult Needed No Mandate Report Filed No Explanation Of Identifying Problems PATIENT IS A 80-YEAR-OLD MALE ADMITTED FOR COVID, PNEUMONIA, AND HYPOXIA. PATIENT HAS PMHX OF ASTHMA, CANCER, GERD, AND HYPERTENSION. PATIENT'S REPORTED NO HISTORY OF SUBSTANCE ABUSE OR MENTAL HEALTH. Admitted From Home Pre-Admission Level Of Functioning Status Independent/Ambulatory Prior Resources/Services Used In Last 12 Months No Prior Resources Used Prior DME No Prior DME Used Dialysis Comments N/A Living Situation Lives With Family House Patient Had Caregiver No Home Support No Caregiver Issues Financial Issues No Known Financial Issue Referral To The Financial Counselor Needed No Factors/Needs No D/C Needs Identified Explanation And Or Other Factors Affecting/Possible DC Needs PATIENT'S STATED THAT SHE WOULD TRANSPORT PATIENT HOME. Pt/Rep Participated In Discharge Plan Yes Patient/Family Agress With Discharge Plan Yes Discharge Plan Comments TENTATIVE DISCHARGE PLAN IS FOR PATIENT TO RETURN HOME. DC Plan Status Initiated
--- NOTE | 2020-06-12 15:08 | NUR ---
PATIENT IN BED TALKING ON HIS CELL PHONE. DENIED OF PAIN AT THIS TIME. RESP EVEN AND UNLABORED ON 2LNC, 97%. CALL LIGHT WITHIN REACH. WILL CONTINUE TO MONITOR.
[2020-06-12 16:00] VITALS: BP 104/65
[2020-06-12] MEDS: ATORVASTATIN 20 MG TAB PO SCH (16:03)
--- NOTE | 2020-06-12 17:25 | NUR ---
PATIENT SITTING UP BY BEDSIDE TALKING ON CELL PHONE. RESP EVEN AND UNLABORED ON 2L NC, O2SAT 96%. PT TO BE WEANING OFF OXYGEN TOLERATED BUT PT REQUESTED TO BE LEFT ON 2L NC PT TOLERATING WELL. NO NOTED ANXIETY OR TACHYPNEA. DENIED OF PAIN AT THIS TIME. CALL LIGHT WITHIN REACH. WILL CONTINUE TO MONITOR.
--- NOTE | 2020-06-12 19:15 | NUR ---
RECEIVED BEDSIDE REPORT FROM DAY SHIFT NURSE FOR CONTINUITY OF CARE. PT IS AWAKE AND ALERT, A&OX4. ON 2L O2 NC WITH BREATHING UNLABORED. SR ON TELE MONITORING. PT IS AMBULATORY WITH UNIVERSAL PRECAUTIONS. SKIN IS WARM, DRY, AND INTACT. LAST BM WAS TODAY 06/12 PER DAY SHIFT NURSE. IV IS IN THE LEFT AC 18 GAUGE RUNNING NS AT 20 ML PER HOUR. PT IS CURRENTLY SITTING UP AT THE BEDSIDE EATING DINNER. PT IS COVID POSITIVE WITH DROPLET PRECAUTIONS IN PLACE. PLAN OF CARE DISCUSSED. BED IS IN THE LOWEST POSITION AND CALL LIGHT WITHIN REACH. PT IS STABLE.
--- NOTE | 2020-06-12 19:15 | NUR ---
ENDORSED PATIENT TO NIGHT NURSE. PATIENT IN STABLE CONDITION.
[2020-06-12 20:00] VITALS: BP 92/52
--- NOTE | 2020-06-12 21:30 | NUR ---
PT IS AWAKE AND LAYING IN SEMI FOWLERS POSITION. PT WAS TITRATED DOWN FROM 2L NC TO RA BY RT. O2 SAT IS 96% ON RA. NO RESPIRATORY DISTRESS NOTED. IV FLUIDS ARE PATENT AND INFUSING. BED IS IN THE LOWEST POSITION. CELL PHONE IS AT BEDSIDE. WILL CONTINUE TO MONITOR.
--- NOTE | 2020-06-12 21:33 | NUR ---
RECEIVED REPORT FROM AM SHIFT. PT SEEN AND ASSESSED. PT IS NO 2L NASAL CANNULA WITH SPO2 OF 98%. TITRATED PT TO ROOM AIR WITH SPO2 OF 94%. PT IS IN NO APPARENT RESPIRATORY DISTRESS AT THIS TIME. RN NOTIFIED. WILL CONTINUE TO MONITOR PT. HHN TX NOT GIVEN AT THIS TIME DUE TO COVID PROTOCOL.
--- NOTE | 2020-06-12 23:35 | NUR ---
PT IS ASLEEP. NO RESPIRATORY DISTRESS. CHEST RISE AND FALL IS SYMMETRICAL. O2 SAT IS 94% ON RA. IV FLUIDS ARE INFUSING. BED IS IN THE LOWEST POSITION. BATHROOM LIGHT IS ON TO HELP WITH VISIBILITY WHEN NEEDING TO AMBULATE.
[2020-06-13] VITALS: BP 103/63
--- NOTE | 2020-06-13 00:01 | NUR ---
CALLED BLOOD BANK AND ASKED THE TECH IF THE CONVALESCENT PLASMA IS READY TO ADMINISTER. TECH INFORMED ME THAT THE PLASMA HAD NOT COME IN FROM THE [facility] YET. THEY SAID THAT THEY WILL CALL WHEN THE PLASMA COMES IN.
--- NOTE | 2020-06-13 01:53 | NUR ---
ROUNDED ON PT. HE IS SLEEPING IN SUPINE POSITION. BREATHING IS UNLABORED. FLUIDS ARE INFUSING. PT IS STABLE AT THIS TIME. WILL CONTINUE TO MONITOR.
--- NOTE | 2020-06-13 03:45 | NUR ---
PT IS ASLEEP. BREATHING IS UNLABORED. O2 SAT IS 95% ON RA. IV IS PATENT AND INTACT. PT IS STABLE.
[2020-06-13 04:00] VITALS: BP 90/55
--- NOTE | 2020-06-13 05:18 | NUR ---
PT IS UP TO THE RESTROOM. GAIT IS STEADY. NO SOB ON RA. IV IS INFUSING. PT IS BACK TO BED WITH NO DISTRESS NOTED. PT DENIES PAIN AT THIS TIME.
[2020-06-13 05:56] LABS: BASOPHILS % (AUTO) 0.1 % (0.0-2.0); HEMATOCRIT 36.2 % (36-52); HEMOGLOBIN 11.9 g/dL (12.0-18.0); LYMPHOCYTES # (AUTO) 0.7 K/uL (2.0-11.5); LYMPHOCYTES % (AUTO) 7.6 % (20.5-51.1); MEAN CORPUSCULAR HEMOGLOBIN 31 pg (27-31); MEAN CORPUSCULAR HGB CONC 33 g/dL (33-37); MEAN CORPUSCULAR VOLUME 92.7 fL (80-94); MONOCYTES # (AUTO) 0.7 K/uL (0.8-1.0); MONOCYTES % (AUTO) 7.9 % (1.7-9.3); NEUTROPHILS # (AUTO) 7.4 K/uL (1.8-7.7); NEUTROPHILS % (AUTO) 84.4 % (42.2-75.2); PLATELET COUNT (AUTO) 252 K/uL (140-450); RED CELL DISTRIBUTION WIDTH 14.8 % (11.6-13.7); WHITE BLOOD COUNT (AUTO) 8.8 K/uL (4.8-10.8)
[2020-06-13 07:15] LABS: ALBUMIN 2.7 g/dL (3.4-5.0); ANION GAP 11.8 (8-16); ASPARTATE AMINOTRANSFERASE 26 U/L (15-37); CARBON DIOXIDE 25.4 mmol/L (21-32); CHLORIDE 105 mmol/L (98-107); GLUCOSE 98 mg/dL (74-106); POTASSIUM 4.2 mmol/L (3.5-5.1); SODIUM SERUM 138 mmol/L (136-145); TOTAL BILIRUBIN 0.6 mg/dL (0.0-1.0); UREA NITROGEN, BLOOD 28 mg/dL (7-18)
--- NOTE | 2020-06-13 07:15 | NUR ---
ENDORSED PT TO DAY SHIFT NURSE FOR CONTINUITY OF CARE. PT IS ASLEEP AND CHEST RISE AND FALL SYMMETRICAL. BREATHING IS UNLABORED. PT IS STABLE AT THIS TIME. CELL PHONE IS AT BEDSIDE TABLE. PLAN OF CARE DISCUSSED.
--- NOTE | 2020-06-13 07:16 | NUR ---
RECEIVED REPORT FROM EVAPORATOR HELPER RN FOR CONTINUITY OF CARE. PATIENT ASLEEP IN BED WITH RIGHT LATERAL POSITION. VISIBLE CHEST RISE AND FALLS EVENLY IN RA. O2 SAT 94-95%, HR 83. SKIN WARM TO TOUCH. IV SITE LEFT AC 18G INFUSING NS @ 20ML/HR. ABDOMEN SOFT AND NON TENDER. NO ACUTE DISTRESS NOTED. SAFETY MEASURES IN PLACE, CALL LIGHT WITHIN REACH. WILL CONTINUE TO MONITOR.
[2020-06-13 08:00] VITALS: BP 118/66
[2020-06-13] MEDS: FUROSEMIDE 40 MG/4 ML VIAL IVP SCH (08:52)
[2020-06-13] MEDS: ZINC SULF 220 MG CAP PO SCH (08:52)
[2020-06-13] MEDS: ASCORBIC ACID 500 MG TAB PO SCH (08:52)
[2020-06-13] MEDS: lisinopriL 20 MG TAB PO SCH (08:53)
[2020-06-13] MEDS: METOPROLOL 25 MG TAB PO SCH ×2 (08:53→21:00)
[2020-06-13] MEDS: PANTOPRAZOLE 40 MG TABEC PO SCH (08:53)
[2020-06-13] MEDS: POTASSIUM CHLORIDE 8 MEQ TABER PO SCH (09:05)
--- NOTE | 2020-06-13 09:05 | NUR ---
SCHEDULED MEDICATION GIVEN, EDUCATION PROVIDED. PATIENT TOLERATED WELL. PATIENT'S O2 SAT RANG FROM 88-89% IN RA. PUT BACK TO OXYGEN, 94% WITH 2L NC. HR 92. PATIENT DENIES SOB OR PAIN. SAFETY MEASURES IN PLACE, CALL LIGHT WITHIN REACH. WILL CONTINUE TO MONITOR.
--- NOTE | 2020-06-13 11:05 | NUR ---
PATIENT RESTING IN BED, NO ACUTE DISTRESS NOTED. SAFETY MEASURES IN PLACE, WILL CONTINUE TO MONITOR.
[2020-06-13 12:00] VITALS: BP 107/60
[2020-06-13] MEDS: NACL 0.9% 1,000 ML IV SCH (12:20)
--- NOTE | 2020-06-13 13:20 | NUR ---
REMDESIVIR GIVEN VIA IVPB. EDUCATION PROVIDED. SAFETY MEASURES IN PLACE, PATIENT DENIES PAIN OR DISCOMFORT. WILL CONTINUE TO MONITOR.
[2020-06-13] MEDS: REMDESIVIR (EUA) 100 MG in NACL 0.9% 100 ML IV SCH (13:21)
--- NOTE | 2020-06-13 15:20 | NUR ---
PATIENT'S O2 SAT 95% WITH 1L NC. INFORMED PATIENT TO REMOVE THE OXYGEN. O2 SAT 92% IN RA. HR 81. WILL CONTINUE TO MONITOR PATIENT'S O2 SAT IN RA.
--- NOTE | 2020-06-13 15:43 | NUR ---
PATIENT'S O2 SAT 91% IN RA. HR 81. WILL CONTINUE TO MONITOR.
[2020-06-13 16:00] VITALS: BP 101/64
[2020-06-13] MEDS: ATORVASTATIN 20 MG TAB PO SCH (17:20)
--- NOTE | 2020-06-13 17:38 | NUR ---
PATIENT'S O2 SAT DECREASED TO 85% IN RA AFTER WALKING BACK FROM THE RESTROOM. INFORMED PATIENT TO PUT OXYGEN BACK ON, AND TAKE DEEP BREATH. O2 SAT WENT BACK TO 92% WITH 1L NC. WILL CONTINUE TO MONITOR.
--- NOTE | 2020-06-13 18:07 | NUR ---
PATIENT'S O2 96% WITH 1 L NC. INFORMED PATIENT TO TAKE OFF THE OXYGEN. WILL CONTINUE TO MONITOR PATIENT'S O2 SAT.
--- NOTE | 2020-06-13 18:19 | NUR ---
PATIENT RESTING IN BED SUPINE POSITION. O2 SAT 94% IN RA. HR 79. NO ACUTE DISTRESS NOTED. WILL CONTINUE TO MONITOR.
--- NOTE | 2020-06-13 18:37 | NUR ---
PATIENT CHANGED POSITION. SITTING AT SIDE OF BED. O2 SAT 90% IN RA. HR 89. DENIES SOB. WILL CONTINUE TO MONITOR.
--- NOTE | 2020-06-14 07:30 | NUR ---
RECEIVED ENDORSEMENT FROM SENIOR INTEGRATION ARCHITECT, AWAKE ,ALERT, ORIENTEDX4, BREATHING SPONTANEOUSLY AT ROOM AIR,NOT IN DISTRESS NOTED. WITH ONGOING IV FLUID 0.9% NS AT 20ML/HOUR INFUSING AT LEFT AC, G 18 IV CANNULA NOTED. SAFETY MEASURES IN PLACE AND CONTINUE MONITOR.
[2020-06-14 08:00] VITALS: BP 103/78
[2020-06-14] MEDS: POTASSIUM CHLORIDE 8 MEQ TABER PO SCH (09:00)
--- NOTE | 2020-06-14 09:50 | NUR ---
FULLY AWAKE AND ALERT, DUE MEDICATION GIVEN
[2020-06-14] MEDS: ASPIRIN 81 MG TAB.CHEW PO SCH (10:04)
[2020-06-14] MEDS: METOPROLOL 25 MG TAB PO SCH ×2 (10:04→20:21)
[2020-06-14] MEDS: lisinopriL 20 MG TAB PO SCH (10:04)
[2020-06-14] MEDS: PANTOPRAZOLE 40 MG TABEC PO SCH (10:04)
[2020-06-14] MEDS: ZINC SULF 220 MG CAP PO SCH (10:05)
[2020-06-14] MEDS: ASCORBIC ACID 500 MG TAB PO SCH (10:05)
[2020-06-14] MEDS: FUROSEMIDE 40 MG/4 ML VIAL IVP SCH (10:06)
[2020-06-14 10:50] LABS: ANION GAP 10.5 (8-16); CHLORIDE 106 mmol/L (98-107); GLUCOSE 107 mg/dL (74-106); POTASSIUM 4.5 mmol/L (3.5-5.1); SODIUM SERUM 140 mmol/L (136-145)
[2020-06-14 10:51] LABS: ALBUMIN 2.7 g/dL (3.4-5.0); ASPARTATE AMINOTRANSFERASE 21 U/L (15-37); CREATININE 0.9 mg/dL (0.6-1.3); TOTAL BILIRUBIN 0.5 mg/dL (0.0-1.0); UREA NITROGEN, BLOOD 31 mg/dL (7-18)
[2020-06-14 10:59] LABS: PHOSPHORUS 2.8 mg/dL (2.5-4.9)
[2020-06-14 11:18] LABS: HEMOGLOBIN 12.8 g/dL (12.0-18.0); LYMPHOCYTES % (AUTO) 11.5 % (20.5-51.1); MEAN CORPUSCULAR HEMOGLOBIN 31 pg (27-31); MEAN CORPUSCULAR HGB CONC 33 g/dL (33-37); MONOCYTES % (AUTO) 13.1 % (1.7-9.3); PLATELET COUNT (AUTO) 285 K/uL (140-450); RED BLOOD CELL COUNT(AUTO) 4.18 MIL/uL (4.20-6.10); WHITE BLOOD COUNT (AUTO) 5.8 K/uL (4.8-10.8)
[2020-06-14 11:19] LABS: BASOPHILS % (AUTO) 0.4 % (0.0-2.0); LYMPHOCYTES # (AUTO) 0.7 K/uL (2.0-11.5); MONOCYTES # (AUTO) 0.8 K/uL (0.8-1.0); NEUTROPHILS # (AUTO) 4.4 K/uL (1.8-7.7)
[2020-06-14] MEDS: NACL 0.9% 1,000 ML IV SCH (12:20)
--- NOTE | 2020-06-14 12:45 | NUR ---
AMBULATORY TO TOILET, VOIDED FREELY CLAIMED. VITAL SIGNS STABLE
[2020-06-14] MEDS: REMDESIVIR (EUA) 100 MG in NACL 0.9% 100 ML IV SCH (13:09)
[2020-06-14 14:00] VITALS: BP 108/78
--- NOTE | 2020-06-14 14:40 | NUR ---
AWAKE AND ALERT, NOT IN DISTRESS NOTED
--- NOTE | 2020-06-14 15:30 | NUR ---
BLOOD BANK CONTACTED AND ACCORDING TO THE PERSONNEL, NO CONVALESCENT PLASMA REQUESTED. I TOLD HIM THAT IT WAS ORDERED LAST 06/12/2020 BUT HE TOLD TO PUT A NEW ORDER IF THE DOCTOR STILL NEED A CONVALESCENT PLASMA TO TRANSFUSE. RHONDA CHEN ASKED IN THE UNIT, ACCORDING TO HER THE PATIENT IS STABLE RIGHT NOW AND ON ROOM AIR. PATIENT DOESN'T NEED A CONVALESCENT FOR NOW ACCORDING TO DR. ELLIS. TO FOLLOW UP DR. CD, ID
[2020-06-14 16:00] VITALS: BP 97/60
--- NOTE | 2020-06-14 17:12 | NUR ---
FULLY AWAKE AND ALERT, DUE MEDICATION GIVEN
[2020-06-14] MEDS: ATORVASTATIN 20 MG TAB PO SCH (17:15)
--- NOTE | 2020-06-14 18:32 | NUR ---
DINNER SERVED, ENCOURAGED TO EAT
--- NOTE | 2020-06-14 19:25 | NUR ---
ENDORSED TO ABRASIVE MIXER IN STABLE CONDITION FOR CONTINUITY OF CARE. SPOKE WITH DR. KRAUS IN THE UNIT, UPDATE PATIENT STATUS, ON ROOM AIR AND STABLE. ACCORDING TO HIM NO NEED TO TRANSFUSE CONVALESCENT PLASMA.
--- NOTE | 2020-06-14 19:25 | NUR ---
RECEIVED PT FROM DAYSHIFT RN, PT RESTING IN BED ON RM AIR, LUNG SOUNDS DIMINISHED, PULSES PALPABLE S1 AND S2 HEART SOUNDS HEARD, PT DENIES PAIN AT THIS TIME.
[2020-06-14 20:00] VITALS: BP 121/69
--- NOTE | 2020-06-14 20:20 | NUR ---
RECEIVED REPORT FROM AM SHIFT. PT SEEN AND ASSESSED. FOUND PATIENT NO ROOM AIR. SPO2 OF 92%. PATIENT DID NOT COMPLAIN OF SOB. PATIENT IS IN NO APPARENT RESPIRATORY DISTRESS AT THIS TIME. PRN TREATMENT NOT INDICATED AT THIS TIME. PATIENT WAS INFORMED TO CALL RN OR FOREIGN LEGAL CONSULTANT FOR PRN TX WHEN EXPERIENCING SHORTNESS OF BREATH. WILL CONTINUE TO MONITOR PT.
--- NOTE | 2020-06-14 20:21 | NUR ---
PT MEDS GIVEN, PT RESTING IN BED VSS, NO COMPLAINTS OF PAIN WILL CONTINUE TO MONITOR PT
--- NOTE | 2020-06-15 03:00 | NUR ---
PT RESTING IN BED, DENIES PAIN, WILL CONTINUE TO MONITOR PT
[2020-06-15 04:00] VITALS: BP 99/66
[2020-06-15 06:23] LABS: ALBUMIN 2.6 g/dL (3.4-5.0); ANION GAP 10.5 (8-16); ASPARTATE AMINOTRANSFERASE 20 U/L (15-37); CARBON DIOXIDE 27.9 mmol/L (21-32); CHLORIDE 105 mmol/L (98-107); CREATININE 1.1 mg/dL (0.6-1.3); GLUCOSE 112 mg/dL (74-106); POTASSIUM 4.4 mmol/L (3.5-5.1); SODIUM SERUM 139 mmol/L (136-145); TOTAL BILIRUBIN 0.5 mg/dL (0.0-1.0); UREA NITROGEN, BLOOD 34 mg/dL (7-18)
--- NOTE | 2020-06-15 07:15 | NUR ---
RECEIVED REPORT FROM NIGHT NURSE FOR CONTINUITY OF CARE, PT IS RESTING IN BED, PT AAOX4, PT HAS LEFT AC 18G INFUSING NS AT 20 ML/H, SKIN INTACT, WILL INTRODUCE SELF, BED IN LOW POSITION, SAFETY MEASURES IN PLACE, CALL LIGHT WITHIN REACH, WILL CONTINUE TO MONITOR.
[2020-06-15 08:00] VITALS: BP 105/70
[2020-06-15] MEDS: FUROSEMIDE 40 MG/4 ML VIAL IVP SCH (09:00)
[2020-06-15] MEDS: ASCORBIC ACID 500 MG TAB PO SCH (09:15)
[2020-06-15] MEDS: PANTOPRAZOLE 40 MG TABEC PO SCH (09:15)
[2020-06-15] MEDS: ZINC SULF 220 MG CAP PO SCH (09:15)
[2020-06-15] MEDS: ASPIRIN 81 MG TAB.CHEW PO SCH (09:16)
[2020-06-15] MEDS: METOPROLOL 25 MG TAB PO SCH (09:16)
[2020-06-15] MEDS: lisinopriL 20 MG TAB PO SCH (09:16)
[2020-06-15] MEDS: POTASSIUM CHLORIDE 8 MEQ TABER PO SCH (09:17)
--- NOTE | 2020-06-15 09:26 | NUR ---
ADMINISTERED SCHEDULED MEDICATION, MEDICATION EDUCATION PROVIDED, PT VERBALIZED UNDERSTANDING, PT TOLERATED WELL, PT IS STABLE, WILL CONTINUE TO MONITOR.
--- NOTE | 2020-06-15 11:30 | NUR ---
PT IS STABLE, SITTING IN ROOM WATCHING TV, WILL CONTINUE TO MONITOR.
[2020-06-15] MEDS: NACL 0.9% 1,000 ML IV SCH (12:20)
[2020-06-15] MEDS ORDERED: APIX5TAB PO (12:38)
[2020-06-15] MEDS ORDERED: DEXA6TAB8 PO (12:38)
[2020-06-15] MEDS ORDERED: VITC500 PO (12:39)
[2020-06-15] MEDS ORDERED: ZINC220C28 PO (12:39)
[2020-06-15] MEDS: REMDESIVIR (EUA) 100 MG in NACL 0.9% 100 ML IV SCH (13:51)
--- NOTE | 2020-06-15 13:53 | NUR ---
ADMINISTERED SCHEDULED MEDICATION, MEDICATION EDUCATION PROVIDED, PT VERBALIZED UNDERSTANDING, PT TOLERATED WELL, PT IS STABLE, WILL CONTINUE TO MONITOR.
--- NOTE | 2020-06-15 15:20 | NUR ---
PROVIDED PT WITH DISCHARGE INSTRUCTIONS, PT VERBALIZED UNDERSTANDING, PT DISCHARGED, FLU AND PNA UP TO DATE, PT STABLE.
== END 2020-06-15 15:20 | disposition home or self-care (01) | DRG 137 ==
LOC: MED 15:37 → MTU 19:31
PROVIDERS: ADMIT Family Medicine; ATTEND Family Medicine
PROC: XW033E5 Introduction of Remdesivir Anti-infective into Peripheral Vein, Percutaneous Approach, New Technology Group 5 (ICD-10-PCS; principal; 2020-06-15)
DX: U07.1 COVID-19 (principal); J12.89 Other viral pneumonia; E43 Unspecified severe protein-calorie malnutrition; I50.43 Acute on chronic combined systolic (congestive) and diastolic (congestive) heart failure; E87.1 Hypo-osmolality and hyponatremia; Z68.30 Body mass index [BMI] 30.0-30.9, adult; I11.0 Hypertensive heart disease with heart failure; K21.9 Gastro-esophageal reflux disease without esophagitis; J96.00 Acute respiratory failure, unspecified whether with hypoxia or hypercapnia
CPT/HCPCS: 36415; 36600; 71045; 80048; 80053; 80305; 81001; 82150; 82550; 82728; 82803; 83036; 83605; 83615; 83690; 83735; 83880; 84100; 84436; 84439; 84443; 84479; 84484; 85025; 85379; 85384; 85610; 85651; 85730; 86140; 86886; 86900; 86901; 87040; 87081; 87086; 87420; 87804; 93005; 96365; 96366; 96367; 96375; 99291; J0456; J0696; J1100; J1644; J1940; J3490; J7030; J7060; U0003

== ENCOUNTER 2020-07-16 00:03 | Inpatient (IN) | payer MEDICAID, SELFPAY ==
[~2020-07-16] VITALS: Ht 162.6 cm; Wt 77.7 kg
[~2020-07-16 00:03] MED LIST changes: +APIX5TAB PO; +DEXA6TAB8 PO; +VITC500 PO; +ZINC220C28 PO
[2020-07-16 00:10] VITALS: BP 150/97
--- NOTE | 2020-07-16 00:10 | NUR ---
TO TENT #02 AMBULATORY
--- NOTE | 2020-07-16 00:34 | NUR ---
AMBULATED TO ER BED 4
--- NOTE | 2020-07-16 00:40 | NUR ---
ERMD AT BEDSIDE FOR MEDICAL EVALUATION.
--- NOTE | 2020-07-16 00:40 | NUR ---
80 Y/O MALE PRESENTED TO ED C/O SOB & CP TIGHTNESS/SHARPNESS SINCE 1700 TODAY. PT WAS DX W/ COVID 06/10/20 FROM [facility], PT WAS ADMITTED FOR COVID. PT RR EVEN AND MILDLY LABORED. BL LUNG SOUND CLEAR THROUGHOUT. S1S2 NOTED. PT TACHYCARDIC, HR 135 BPM. CAP REFIL < 3 SEC. A/O X4. PT RESTING IN BED, LOCKED AND IN LOWEST POSITION ,HOB ELEVATED, SIDE RAIL X2 FOR PT SAFETY. PT CONNECTED TO [employer], PULSE OX AND BP CUFF. ERMD AT BEDSIDE FOR MEDICAL EVALUATION. PMH: PROSTATE CA, HTN, ASTHMA, GERD, HIATAL HERNIA, COVID + NKA
[2020-07-16] MEDS ORDERED: NACL 0.9% 1,000 ML IV ONE (00:45)
--- NOTE | 2020-07-16 00:45 | NUR ---
18G IV INSERTED TO LT AC , BLOOD CULTURES AND LABS COLLECTED AND HANDED TO CYDNEY BOTELLO AT THIS TIME.
--- NOTE | 2020-07-16 00:55 | NUR ---
SHANI TATE SWAB COLLECTED AND HANDED TO CYDNEY BOTELLO TECH.
[2020-07-16 01:04] LABS: BASOPHILS # (AUTO) 0.1 K/uL (0.00-0.22); BASOPHILS % (AUTO) 0.8 % (0.0-2.0); EOSINOPHILS % (AUTO) 0.4 % (0.0-4.0); HEMOGLOBIN 13.1 g/dL (12.0-18.0); LYMPHOCYTES # (AUTO) 2.8 K/uL (2.0-11.5); LYMPHOCYTES % (AUTO) 23.7 % (20.5-51.1); MEAN CORPUSCULAR HEMOGLOBIN 30 pg (27-31); MEAN CORPUSCULAR HGB CONC 32 g/dL (33-37); MONOCYTES # (AUTO) 1.6 K/uL (0.8-1.0); MONOCYTES % (AUTO) 13.5 % (1.7-9.3); NEUTROPHILS # (AUTO) 7.2 K/uL (1.8-7.7); NEUTROPHILS % (AUTO) 61.6 % (42.2-75.2); PLATELET COUNT (AUTO) 374 K/uL (140-450); RED BLOOD CELL COUNT(AUTO) 4.36 MIL/uL (4.20-6.10); RED CELL DISTRIBUTION WIDTH 16.3 % (11.6-13.7); WHITE BLOOD COUNT (AUTO) 11.7 K/uL (4.8-10.8)
--- NOTE | 2020-07-16 01:06 | NUR ---
CT CONSENT REVIEWED AND SIGNED BY PATIENT AT THIS TIME.
--- NOTE | 2020-07-16 01:14 | NUR ---
XRAY AT BEDSIDE.
[2020-07-16 01:35] LABS: CARBON DIOXIDE 22.8 mmol/L (21-32); CHLORIDE 106 mmol/L (98-107); GLUCOSE 103 mg/dL (74-106); POTASSIUM 3.8 mmol/L (3.5-5.1); SODIUM SERUM 141 mmol/L (136-145); TOTAL BILIRUBIN 1.3 mg/dL (0.0-1.0); UREA NITROGEN, BLOOD 26 mg/dL (7-18)
[2020-07-16 01:36] LABS: ALBUMIN 3.4 g/dL (3.4-5.0); ASPARTATE AMINOTRANSFERASE 30 U/L (15-37)
--- NOTE | 2020-07-16 03:10 | NUR ---
PT RESTING IN BED,LOCKED AND IN LOWEST POSITION, HOB ELEVATED, SIDE RAIL X2 FOR PT SAFETY. VSS. NO ACUTE DISTRESS NOTED. VISIBLE RISE AND FALL OF CHEST.
[2020-07-16] MEDS ORDERED: AZITHROMYCIN 500 MG in DEXTROSE 5% 250 ML IV ONE (05:00)
[2020-07-16] MEDS ORDERED: DEXAMETHASONE 10 MG/ML VIAL IVP ONE (05:00)
[2020-07-16] MEDS ORDERED: AZITHROMYCIN 500 MG INJ VIAL IV ONE (05:04)
[2020-07-16] MEDS ORDERED: cefTRIAXone 1,000 MG VIAL ONE (05:06)
--- NOTE | 2020-07-16 05:30 | NUR ---
2L OF YELLOW URINE EMPTIED FROM URINALS , NEW URINALS PROVIDED TO PT AT THIS TIME.
[2020-07-16] MEDS ORDERED: ALBUTEROL SULFATE/IPRATROPIU 3 ML SOL IH PRN (05:40)
--- NOTE | 2020-07-16 07:15 | NUR ---
REPORT GIVEN TO ROBBIE LING FOR CONTINUATION OF CARE.
--- NOTE | 2020-07-16 07:16 | NUR ---
Report received from ROBBIE Cobb, transfered care at this time.
[2020-07-16] MEDS ORDERED: guaiFENesin DM 200/20 MG-10 ML 10 ML UDC PO PRN (08:05)
[2020-07-16] MEDS: NACL 0.9% 1,000 ML IV SCH ×2 (08:05→20:56)
[2020-07-16] MEDS ORDERED: POTASSIUM CHLORIDE 10 MEQ TABER PO PRN (08:05)
[2020-07-16] MEDS ORDERED: ACETAMINOPHEN 325 MG TAB PO PRN (08:05)
[2020-07-16] MEDS ORDERED: DOCUSATE SODIUM 100 MG GELCAP PO PRN (08:05)
[2020-07-16] MEDS ORDERED: ONDANSETRON 4 MG/2 ML VIAL IM/IVP PRN (08:05)
[2020-07-16] MEDS ORDERED: ZOLPIDEM 5 MG TAB PO PRN (08:05)
[2020-07-16] MEDS ORDERED: HYDROcodone/APAP 7.5/325 MG 1 TAB PO PRN (08:05)
[2020-07-16] MEDS ORDERED: ALBUTEROL HFA MDI 90 MCG/ACTUATION 8 GM INH PRN (08:05)
[2020-07-16] MEDS ORDERED: FUROSEMIDE 40 MG TAB PO SCH (09:00)
--- NOTE | 2020-07-16 09:18 | NUR ---
PATIENT HAS BEEN SCREENED AND CATEGORIZED MODERATE NUTRITION RISK. PATIENT WILL BE SEEN WITHIN 3-5 DAYS OF ADMISSION. 07/18/20 07/20/[address]
[2020-07-16] MEDS ORDERED: ASPIRIN 81 MG TAB.CHEW ONE (09:32)
[2020-07-16] MEDS: ASPIRIN 325 MG TAB PO SCH (09:40)
[2020-07-16] MEDS: LOSARTAN 25 MG TAB PO SCH (09:40)
[2020-07-16] MEDS: ASCORBIC ACID 500 MG TAB PO SCH (09:40)
[2020-07-16] MEDS: PANTOPRAZOLE 40 MG TABEC PO SCH (09:40)
[2020-07-16] MEDS: ZINC SULF 220 MG CAP PO SCH (09:40)
--- NOTE | 2020-07-16 10:13 | NUR ---
Collected UA, gave to landscaping and groundskeeping laborer.
[2020-07-16] MEDS: FUROSEMIDE 40 MG/4 ML VIAL IVP SCH ×2 (10:24→18:44)
[2020-07-16 10:54] LABS: APPEARANCE,URINE CLEAR (CLEAR); BILIRUBIN,URINE NEGATIVE (NEGATIVE); BLOOD, URINE 2+ (NEGATIVE); COLOR,URINE YELLOW (YELLOW); LEUKOCYTE ESTERASE ,URINE NEGATIVE (NEGATIVE); NITRITE, URINE NEGATIVE (NEGATIVE); PH,URINE 5.5 (5.0-9.0); UGLUCOSE NEGATIVE (NEGATIVE)
[2020-07-16 11:09] LABS: CHOL/HDL RATIO 2.2 (1-4.5); FREE T4 (FREE THYROXINE) 1.06 ng/dL (0.76-1.46); PHOSPHORUS 2.9 mg/dL (2.5-4.9); THYROID STIMULATING HORMONE 0.25 uIU/mL (0.34-3.74)
[2020-07-16 11:15] LABS: BARBITURATE, URINE NEGATIVE ng/ml (NEG <=200); BENZODIAZEPINE, URINE NEGATIVE ng/mL (NEG <=200); CANNABINOID, URINE NEGATIVE ng/mL (NEG <=50); COCAINE, URINE NEGATIVE ng/mL (NEG <=300); OPIATE, URINE NEGATIVE ng/mL (NEG <=2000); PHENCYCLIDINE SCREEN,URINE NEGATIVE ng/mL (NEG <=25)
--- NOTE | 2020-07-16 11:40 | NUR ---
Gave report to ROBBIE Alvarado, pending admission 108B.
[2020-07-16 11:42] LABS: WBC,URINE 0-5 /HPF (0-5)
--- NOTE | 2020-07-16 11:50 | NUR ---
Patient will be admitted to care of Dr. Chary Baker. Admited to medsur/tele. Will go to room 108A. Belongings list completed. Report to ROBBIE Alvarado.
--- NOTE | 2020-07-16 12:45 | NUR ---
SOCIAL WORK NOTE: Patient's Orientation Unable To Assess Information Provided By MARGE GAITAN - Comments SW WAS UNABLE TO MEET PATIENT AT BEDSIDE TO COMPLETE ASSESSMENT. SW COMPLETED ASSESSMENT WITH PATIENT'S . SW USED REMOTE INPATIENT CODER ADITI [id number]. Business Management Manager, Realtionship and Phone Number MARGE COVARRUBIAS [phone] Healthcare Power of Crop And Soil Technician No Does Patient Have a POLST No Identifying Problems No Social Work Triggers Is A Social Work Consult Needed No Mandate Report Filed No Explanation Of Identifying Problems PATIENT IS A 80-YEAR-OLD MALE ADMITTED FOR PNEUMONIA AND HYPOXIA. PATIENT HAS PMHX OF ASTHMA, CANCER, GERD, AND HYPERTENSION. Admitted From Home Pre-Admission Level Of Functioning Status Independent/Ambulatory Prior Resources/Services Used In Last 12 Months No Prior Resources Used Prior DME No Prior DME Used Dialysis Comments N/A Living Situation Lives With Family House Patient Had Caregiver No Home Support No Caregiver Issues Financial Issues No Known Financial Issue Referral To The Financial Counselor Needed Yes Factors/Needs No D/C Needs Identified Pt/Rep Participated In Discharge Plan Yes Patient/Family Agress With Discharge Plan Yes Discharge Plan Comments TENTATIVE DISCHARGE PLAN IS FOR PATIENT TO RETURN HOME. DC Plan Status Initiated
[2020-07-16 18:43] VITALS: BP 110/70
[2020-07-16] MEDS: carvediloL 6.25 MG TAB PO SCH (18:45)
--- NOTE | 2020-07-16 19:25 | NUR ---
RECEIVED PT SLEEPING, EASILY AROUSABLE, AAOX4, NO RESP DISTRESS NOTED, PLAN OF CARE DISCUSSED, MAINTAINED ON DROPLET PRECAUTION FOR R/O COVID, AWAITING PCR RESULT, CALL LIGHT WITHIN REACH
[2020-07-16 20:00] VITALS: BP 103/68
[2020-07-16] MEDS ORDERED: ATORVASTATIN 20 MG TAB PO SCH (21:00)
--- NOTE | 2020-07-16 21:00 | NUR ---
DUE MEDS ADMINISTERED, IVF STARTED WITH NS AT 20M/L VIA GRAVITY, PT VOIDING FREELY USING URINAL, ALL NEEDS ATTENDED.
[2020-07-17] VITALS: BP 97/61
--- NOTE | 2020-07-17 | NUR ---
PT SLEEPING, NO SIGNS OF DISTRESS, ON O2 2L NC WITH SAT OF 97%, IVF INFUSING WELL VIA GRAVITY, CONTINUE TO MONITOR CLOSELY.
[2020-07-17 04:30] VITALS: BP 104/67
[2020-07-17] MEDS ORDERED: cefTRIAXone 1,000 MG VIAL ONE (05:14)
--- NOTE | 2020-07-17 05:20 | NUR ---
DUE ROCEPHIN IVPB ADMINISTERED, MONITORED CLOSELY.
--- NOTE | 2020-07-17 07:05 | NUR ---
RECEIVED PATIENT FROM NIGHT NURSE. PATIENT IN BED AWAKE AND ALERT. RESP EVEN AND UNLABORED ON 2L NC. NO ACUTE S/S DISTRESS AT THIS TIME. LAC 18G NS 20ML BY GRAVITY. DROPLET PRECAUTION OBSERVED. SAFETY MEASURES IN PLACE. CALL LIGHT WITHIN REACH. WILL CONTINUE TO MONITOR.
--- NOTE | 2020-07-17 07:15 | NUR ---
PT EASILY AROUSABLE, NO RESP DISTRESS NOTED, REPORT GIVEN TO ROBBIE COLE FOR CONTINUITY OF CARE.
[2020-07-17 08:00] VITALS: BP 101/63
[2020-07-17] MEDS: NACL 0.9% 1,000 ML IV SCH (08:05)
[2020-07-17 08:07] LABS: T4 (THYROXINE) 6.2 ug/dL (4.5-12.0)
[2020-07-17 08:38] LABS: BASOPHILS % (AUTO) 0.2 % (0.0-2.0); HEMATOCRIT 38.3 % (36-52); HEMOGLOBIN 12.3 g/dL (12.0-18.0); LYMPHOCYTES # (AUTO) 1.5 K/uL (2.0-11.5); LYMPHOCYTES % (AUTO) 12.6 % (20.5-51.1); MEAN CORPUSCULAR HEMOGLOBIN 30 pg (27-31); MEAN CORPUSCULAR HGB CONC 32 g/dL (33-37); MEAN CORPUSCULAR VOLUME 94.1 fL (80-94); MONOCYTES # (AUTO) 1.1 K/uL (0.8-1.0); NEUTROPHILS # (AUTO) 9.4 K/uL (1.8-7.7); NEUTROPHILS % (AUTO) 78.2 % (42.2-75.2); PLATELET COUNT (AUTO) 361 K/uL (140-450); RED BLOOD CELL COUNT(AUTO) 4.07 MIL/uL (4.20-6.10); RED CELL DISTRIBUTION WIDTH 16.7 % (11.6-13.7)
[2020-07-17 08:39] LABS: ANION GAP 12.8 (8-16); CARBON DIOXIDE 25.2 mmol/L (21-32); CHLORIDE 105 mmol/L (98-107); GLUCOSE 117 mg/dL (74-106); SODIUM SERUM 139 mmol/L (136-145); UREA NITROGEN, BLOOD 31 mg/dL (7-18)
[2020-07-17] MEDS: FUROSEMIDE 40 MG/4 ML VIAL IVP SCH (09:00)
[2020-07-17] MEDS ORDERED: AZITHROMYCIN 250 MG TAB PO SCH (09:00)
[2020-07-17] MEDS: LOSARTAN 25 MG TAB PO SCH (09:00)
[2020-07-17] MEDS: PANTOPRAZOLE 40 MG TABEC PO SCH (09:27)
[2020-07-17] MEDS: ASCORBIC ACID 500 MG TAB PO SCH (09:27)
[2020-07-17] MEDS: ASPIRIN 325 MG TAB PO SCH (09:27)
[2020-07-17] MEDS: carvediloL 6.25 MG TAB PO SCH (09:28)
[2020-07-17] MEDS: ZINC SULF 220 MG CAP PO SCH (09:28)
--- NOTE | 2020-07-17 09:30 | NUR ---
PATIENT IN BED AWAKE AND ALERT. MOHAWK SPEAKING BUT ABLE TO MAKE NEEDS KNOWN. MORNING ROUTINE MEDICATIONS GIVEN. LASIX AND COZAAR HELD D/T LOW BP. PATIENT TOLERATED WELL. RESP EVEN AND UNLABORED ON 2LNC, O2SAT 93%. DENIED OF PAIN AT THIS TIME. LAC 18G INTACT AND PATENT INFUSING NS 20ML/HR. LUNGS CLEAR. SKIN INTACT. PLAN OF CARE DISCUSSED, PATIENT VERBALIZED UNDERSTANDING. CALL LIGHT WITHIN REACH. WILL CONTINUE TO MONITOR.
--- NOTE | 2020-07-17 11:40 | NUR ---
PATIENT IN BED SLEEPING, RESP EVEN AND UNLABORED ON 2LNC. CHEST NOTED RISING. NO ACUTE S/S DISTRESS AT THIS TIME. CALL LIGHT WITHIN REACH. WILL CONTINUE TO MONITOR.
[2020-07-17] MEDS ORDERED: FURO40TA9 PO (11:44)
[2020-07-17 12:00] VITALS: BP 101/63
--- NOTE | 2020-07-17 13:50 | NUR ---
PATIENT IN BED SLEEPING, CHEST NOTED RISING. NO ACUTE S/S OF DISTRESS. CALL LIGHT WITHIN REACH. WILL CONTINUE TO MONITOR.
--- NOTE | 2020-07-17 15:11 | NUR ---
PATIENT DISCHARGED HOME WITH FAMILY VIA PRIVATE VEHICLE. PATIENT LEFT WITH ALL PERSONAL BELONGINGS. DISCHARGE INSTRUCTIONS PROVIDED. PATIENT VERBALIZED UNDERSTANDING.
== END 2020-07-17 15:05 | disposition home or self-care (01) | DRG 139 ==
LOC: MED 00:03 → MTU 05:41
PROVIDERS: ADMIT Family Medicine; ATTEND Family Medicine
DX: J18.9 Pneumonia, unspecified organism (principal); J96.20 Acute and chronic respiratory failure, unspecified whether with hypoxia or hypercapnia; I50.43 Acute on chronic combined systolic (congestive) and diastolic (congestive) heart failure; I11.0 Hypertensive heart disease with heart failure; J45.909 Unspecified asthma, uncomplicated; K21.9 Gastro-esophageal reflux disease without esophagitis; I25.10 Atherosclerotic heart disease of native coronary artery without angina pectoris; E78.5 Hyperlipidemia, unspecified; E05.90 Thyrotoxicosis, unspecified without thyrotoxic crisis or storm; Z20.828 Contact with and (suspected) exposure to other viral communicable diseases; Z85.46 Personal history of malignant neoplasm of prostate; Z86.19 Personal history of other infectious and parasitic diseases
CPT/HCPCS: 36415; 71045; 71275; 80048; 80053; 80305; 81001; 82150; 83036; 83605; 83615; 83690; 83735; 83880; 84100; 84436; 84439; 84443; 84479; 84484; 85025; 85379; 85610; 85651; 85730; 86140; 86886; 86900; 86901; 87040; 87081; 93005; 96365; 96367; 99291; J0456; J0696; J1100; J1644; J1940; J7060; Q9967; U0003

== ENCOUNTER 2020-09-28 19:46 | Emergency (ER) | payer MEDICAID ==
[~2020-09-28] VITALS: Ht 162.6 cm; Wt 79.4 kg
[~2020-09-28 19:46] MED LIST changes: -APIX5TAB PO; -POTA8TER12 PO; -VITC500 PO; -ZINC220C28 PO
[2020-09-28 20:02] VITALS: BP 122/92
[2020-09-28] MEDS ORDERED: KETOROLAC 30 MG/ML VIAL IVP ONE (20:10)
[2020-09-28] MEDS ORDERED: NACL 0.9% 500 ML IV ONE (20:10)
[2020-09-28 20:30] LABS: BASOPHILS % (AUTO) 0.5 % (0.0-2.0); EOSINOPHILS # (AUTO) 0.1 K/uL (0-0.4); EOSINOPHILS % (AUTO) 1.9 % (0.0-4.0); HEMOGLOBIN 12.8 g/dL (12.0-18.0); LYMPHOCYTES # (AUTO) 1.5 K/uL (2.0-11.5); LYMPHOCYTES % (AUTO) 27.4 % (20.5-51.1); MEAN CORPUSCULAR HEMOGLOBIN 30 pg (27-31); MEAN CORPUSCULAR HGB CONC 33 g/dL (33-37); MEAN CORPUSCULAR VOLUME 90.4 fL (80-94); MONOCYTES # (AUTO) 0.6 K/uL (0.8-1.0); MONOCYTES % (AUTO) 11.9 % (1.7-9.3); NEUTROPHILS # (AUTO) 3.1 K/uL (1.8-7.7); NEUTROPHILS % (AUTO) 58.3 % (42.2-75.2); PLATELET COUNT (AUTO) 240 K/uL (140-450); RED BLOOD CELL COUNT(AUTO) 4.32 MIL/uL (4.20-6.10); WHITE BLOOD COUNT (AUTO) 5.3 K/uL (4.8-10.8)
[2020-09-28 20:39] LABS: ALBUMIN 3.6 g/dL (3.4-5.0); ANION GAP 13.5 (8-16); ASPARTATE AMINOTRANSFERASE 22 U/L (15-37); CARBON DIOXIDE 28.5 mmol/L (21-32); CHLORIDE 105 mmol/L (98-107); CREATININE 1.3 mg/dL (0.6-1.3); GLUCOSE 112 mg/dL (74-106); SODIUM SERUM 143 mmol/L (136-145); TOTAL BILIRUBIN 0.9 mg/dL (0.0-1.0); UREA NITROGEN, BLOOD 22 mg/dL (7-18)
[2020-09-28] MEDS ORDERED: DEC4 PO (21:32)
[2020-09-28] MEDS ORDERED: TRAM50TA3 PO (21:32)
[2020-09-28] MEDS ORDERED: PANT40EC PO (21:32)
[2020-09-28 22:01] VITALS: BP 122/92
== END 2020-09-28 22:01 | disposition home or self-care (01) ==
LOC: MED 19:46
DX: K29.70 Gastritis, unspecified, without bleeding (principal); K57.00 Diverticulitis of small intestine with perforation and abscess without bleeding; N20.0 Calculus of kidney; J45.909 Unspecified asthma, uncomplicated; K21.9 Gastro-esophageal reflux disease without esophagitis; I10 Essential (primary) hypertension; Z79.899 Other long term (current) drug therapy
CPT/HCPCS: 36415; 74176; 80053; 85025; 96361; 96374; 99284; J1885; J7030

== ENCOUNTER 2020-10-25 18:08 | Emergency (ER) | payer MEDICAID ==
[~2020-10-25] VITALS: Ht 162.6 cm; Wt 74.8 kg
[~2020-10-25 18:08] MED LIST changes: +DEC4 PO; +PANT40EC PO; +TRAM50TA3 PO
[2020-10-25 18:10] VITALS: BP 121/71
--- NOTE | 2020-10-25 18:18 | NUR ---
PT AMBULATED TO BED 10
--- NOTE | 2020-10-25 18:19 | NUR ---
80 Y/O MALE C/O ABD PRESSURE, NAUSEA AND VOMITING X4 DAYS. PATIENT STATES HE HAD 4 EPISODES OF VOMITING TODAY. DENIES ANY CHEST PAIN OR SOB AT THIS TIME. PT IS AFEBRILE. AAOX4. BOWEL SOUNDS NORMOACTIVE AT THIS TIME, NO ABD DISTENTION NOTED.
[2020-10-25] MEDS ORDERED: SIMETHICONE 40 MG/0.6 ML PO STA (18:55)
--- NOTE | 2020-10-25 19:09 | NUR ---
CARE ASSUMED AT THIS TIME. EKG DONE
[2020-10-25 19:29] LABS: BASOPHILS % (AUTO) 0.6 % (0.0-2.0); EOSINOPHILS # (AUTO) 0.2 K/uL (0-0.4); HEMATOCRIT 33.5 % (36-52); LYMPHOCYTES # (AUTO) 1.3 K/uL (2.0-11.5); LYMPHOCYTES % (AUTO) 21.5 % (20.5-51.1); MEAN CORPUSCULAR HEMOGLOBIN 30 pg (27-31); MEAN CORPUSCULAR HGB CONC 33 g/dL (33-37); MEAN CORPUSCULAR VOLUME 91.1 fL (80-94); MONOCYTES # (AUTO) 0.8 K/uL (0.8-1.0); MONOCYTES % (AUTO) 12.8 % (1.7-9.3); NEUTROPHILS # (AUTO) 3.7 K/uL (1.8-7.7); NEUTROPHILS % (AUTO) 62.1 % (42.2-75.2); PLATELET COUNT (AUTO) 293 K/uL (140-450); RED BLOOD CELL COUNT(AUTO) 3.68 MIL/uL (4.20-6.10); RED CELL DISTRIBUTION WIDTH 16.8 % (11.6-13.7)
[2020-10-25 19:44] LABS: ALBUMIN 3.3 g/dL (3.4-5.0); ASPARTATE AMINOTRANSFERASE 29 U/L (15-37); CARBON DIOXIDE 26.4 mmol/L (21-32); CHLORIDE 107 mmol/L (98-107); CREATININE 1.6 mg/dL (0.6-1.3); GLUCOSE 98 mg/dL (74-106); POTASSIUM 4.4 mmol/L (3.5-5.1); SODIUM SERUM 141 mmol/L (136-145); TOTAL BILIRUBIN 0.8 mg/dL (0.0-1.0); UREA NITROGEN, BLOOD 33 mg/dL (7-18)
--- NOTE | 2020-10-25 21:55 | NUR ---
returned from ct
--- NOTE | 2020-10-25 23:00 | NUR ---
AMBULATES TO BR WITH STEADY GAIT
[2020-10-26] MEDS ORDERED: SIME80TA22 PO (00:18)
[2020-10-26 01:04] VITALS: BP 118/64
--- NOTE | 2020-10-26 01:04 | NUR ---
Patient discharged with v/s stable. Written and verbal after care instructions given and explained. Patient verbalized understanding. Ambulatory with steady gait. All questions addressed prior to discharge. Advised to follow up with PMD.
== END 2020-10-26 01:04 | disposition home or self-care (01) ==
LOC: MED 18:08
DX: R10.13 Epigastric pain (principal); N21.0 Calculus in bladder; J45.909 Unspecified asthma, uncomplicated; E11.9 Type 2 diabetes mellitus without complications; K21.9 Gastro-esophageal reflux disease without esophagitis; I10 Essential (primary) hypertension; Z79.899 Other long term (current) drug therapy
CPT/HCPCS: 36415; 71045; 71275; 74174; 80053; 83880; 84484; 85025; 85379; 85610; 85730; 93005; 99285; Q9967

== ENCOUNTER 2021-08-24 23:04 | Inpatient (IN) | payer MEDICAID, SELFPAY ==
--- NOTE | 2021-07-28 12:00 | NUR ---
PATIENT IS A 81-YEAR-OLD MALE ADMITTED IN THE [facility]/ED ON 08/25/2021. DUE TO SHORTHNES OF BREATH, PATIENT WAS RECENTLY DIAGNOSED WITH CHF. SW MET PATIENT AND CALLED PATIENT'S AT TO DISCUSS AND GATHER PATIENT'S COLLATERAL INFORMATION. PATIENT'S AND STATED THAT PATIENT LIVES AT HOME WITH HIS ,AND SON IN [facility]. PER PATIENT'S SHE IS HIS EMERGENCY CONTACT AND HIS MEDICAL DECISION MAKER. PATIENT HAS ADVANCE DIRECTIVES ALREADY AND WAS NOT INTERESTED ON GETTING A.D. INFORMATION PACKET PROVIDED BY GUANAKITO. PATIENT'S REPORTED THAT PATIENT'S PRIMARY PCP IS AT [facility] AT AND PATIENT'S LAST VISIT WITH HIS PCP WAS ABOUT A MONTH AGO. SW DISCUSSED WITH PATIENT ABOUT THE IMPORTANCE OF MAKING A FOLLOW UP APPOINTMENT WITH PATIENT'S PCP AFTER HIS DISCHARGE FROM [facility]. PATIENT'S AGREED AND STATED THAT THEY WILL MAKE HIS APPOINTMENT WHEN PATIENT IS DC FROM [facility]. PATIENT'S ALSO REPORTED HAVING NO ISSUES GETTING OR TAKING HIS MEDICATIONS AND REPORTED THAT USUALLY SHE PICKS UP HIS MEDICATION FROM THE [facility] AT [facility]. [facility]. PER PATIENT'S PATIENT HAS A WALKER AND WHEELCHAIR HIS DME. PER PATIENT'S PATIENT WILL RETURN BACK HOME AFTER HIS DC FROM [facility]. PATIENT'S OR SON WILL BE PICKING UP PATIENT AT DISCHARGE. SW THANKED HER FOR THE INFORMATION PROVIDED AND WILL FOLLOW UP WITH PATIENT NEEDED. Addendum: 08/28/21 at 1854 by Chuyita SCHMITZ WRONG DATE AND TIME FOR ASSESSMENT ABOVE. PLEASE DISREGARD !
[~2021-08-24] VITALS: Ht 162.6 cm; Wt 67.6 kg
[~2021-08-24 23:04] MED LIST changes: +SIME80TA22 PO
[2021-08-24 23:16] VITALS: BP 124/71
--- NOTE | 2021-08-25 | NUR ---
PATIENT WITH C/O SOB AND DIFFICULTY BREATHING DUE TO ABDOMINAL DISCOMFORT. CURRENTLY BREATHING AT RA O2 SAT 96%. STATES HE WAS PREVIOUSLY AT A DIFFERENT HOSPITAL ED BUT WAS DISCHARGED WITH NO MEDICATIONS. STATES HE HAS HISTORY OF CARDIAC PROBLEMS AND TAKES MEDICATIONS AT HOME. HAD A HERNIA REPAIR SURGERY ABOUT A MONTH AGO BUT HAS RECOVERED WITHOUT ANY COMPLICATIONS. DENIES ANY PAIN OR CHEST PAIN. ALL SAFETY MEASURES IN PLACE, WILL CONTINUE TO CLOSELY MONITOR.
[2021-08-25 00:30] LABS: BASOPHILS % (AUTO) 0.7 % (0.0-2.0); EOSINOPHILS # (AUTO) 0.1 K/uL (0-0.4); EOSINOPHILS % (AUTO) 1.1 % (0.0-4.0); HEMATOCRIT 34.7 % (36-52); HEMOGLOBIN 11.1 g/dL (12.0-18.0); LYMPHOCYTES # (AUTO) 1.1 K/uL (2.0-11.5); MEAN CORPUSCULAR HEMOGLOBIN 30 pg (27-31); MEAN CORPUSCULAR HGB CONC 32 g/dL (33-37); MEAN CORPUSCULAR VOLUME 94.3 fL (80-94); MONOCYTES # (AUTO) 0.6 K/uL (0.8-1.0); MONOCYTES % (AUTO) 12.8 % (1.7-9.3); NEUTROPHILS # (AUTO) 3.1 K/uL (1.8-7.7); NEUTROPHILS % (AUTO) 63.4 % (42.2-75.2); PLATELET COUNT (AUTO) 219 K/uL (140-450); RED BLOOD CELL COUNT(AUTO) 3.68 MIL/uL (4.20-6.10); WHITE BLOOD COUNT (AUTO) 4.9 K/uL (4.8-10.8)
[2021-08-25] MEDS ORDERED: AZITHROMYCIN 500 MG in DEXTROSE 5% 250 ML IV ONE (00:40)
[2021-08-25 00:57] LABS: ALBUMIN 3.3 g/dL (3.4-5.0); ANION GAP 14.2 (8-16); ASPARTATE AMINOTRANSFERASE 21 U/L (15-37); CARBON DIOXIDE 28.5 mmol/L (21-32); CHLORIDE 102 mmol/L (98-107); CREATININE 1.5 mg/dL (0.6-1.3); GLUCOSE 94 mg/dL (74-106); POTASSIUM 4.7 mmol/L (3.5-5.1); SODIUM SERUM 140 mmol/L (136-145); TOTAL BILIRUBIN 1.7 mg/dL (0.0-1.0); UREA NITROGEN, BLOOD 38 mg/dL (7-18)
[2021-08-25] MEDS ORDERED: cefTRIAXone 1,000 MG VIAL ONE (01:16)
[2021-08-25] MEDS ORDERED: AZITHROMYCIN 500 MG INJ VIAL IV ONE ×2 (02:59→07:32)
[2021-08-25] MEDS ORDERED: VANCOMYCIN 500 MG VIAL ONE (05:02)
--- NOTE | 2021-08-25 05:46 | NUR ---
PATIENT RESTING COMFORTABLY IN BED, DENIES ANY PAIN OR SOB AT THIS TIME. BREATHING AT RA O2 SAT 97% IN NO ACUTE DISTRESS. ALL SAFETY MEASURES IN PLACE, CALL LIGHT WITHIN REACH. WILL CONTINUE TO CLOSELY MONITOR AND FOLLOW POC.
--- NOTE | 2021-08-25 07:30 | NUR ---
REPORT RECEIVED FROM FRANCES Zaldivar RN FOR CONTINUITY OF CARE. PT IS A&OX4. ON ROOM AIR. IV SITE RT AC 20G, INTACT, PATENT, GOOD BLOOD RETURN, SALINE LOCKED. STEVENSON CATHETER IN PLACE. SKIN INTACT, WARM AND DRY. CALL LIGHT WITHIN REACH. SAFETY PRECAUTIONS IN PLACE.
[2021-08-25 07:47] LABS: APPEARANCE,URINE SL CLOUDY (CLEAR); BILIRUBIN,URINE NEGATIVE (NEGATIVE); BLOOD, URINE 3+ (NEGATIVE); COLOR,URINE YELLOW (YELLOW); LEUKOCYTE ESTERASE ,URINE 1+ (NEGATIVE); NITRITE, URINE NEGATIVE (NEGATIVE); UGLUCOSE NEGATIVE (NEGATIVE)
[2021-08-25 08:09] LABS: RBC,URINE 11-20 (MOD) /HPF (0-5); WBC,URINE 16-25 (MOD) /HPF (0-5)
[2021-08-25 08:10] LABS: CALCIUM OXALATE CRYSTALS,UR None Seen /HPF (None Seen); COARSE GRANULAR CASTS,URINE None Seen /LPF (None Seen); FINE GRANULAR CASTS,URINE None Seen /LPF (None Seen); HYALINE CASTS, URINE None Seen /LPF (None Seen); OTHER CASTS, URINE None Seen /LPF (None Seen); OTHER CRYSTALS,URINE None Seen /HPF (None Seen); RED BLOOD CELL CASTS,URINE None Seen /LPF (None Seen); TRICHOMONAS,URINE None Seen /HPF (None Seen); TRIPLE PHOSPHATE CRYSTAL,UR None Seen /HPF (None Seen); URIC ACID CRYSTALS,URINE None Seen /HPF (None Seen); WAXY CASTS,URINE None Seen /LPF (None Seen); YEAST,URINE None Seen /HPF (None Seen)
[2021-08-25 08:11] LABS: URINE AMORPHOUS URATE None Seen /HPF (None Seen)
--- NOTE | 2021-08-25 08:26 | NUR ---
PT PROVIDED WITH BREAKFAST TRAY
[2021-08-25 08:34] LABS: BASOPHILS % (AUTO) 0.6 % (0.0-2.0); EOSINOPHILS % (AUTO) 0.1 % (0.0-4.0); HEMATOCRIT 37.4 % (36-52); HEMOGLOBIN 12.1 g/dL (12.0-18.0); LYMPHOCYTES # (AUTO) 0.8 K/uL (2.0-11.5); MEAN CORPUSCULAR HEMOGLOBIN 31 pg (27-31); MEAN CORPUSCULAR HGB CONC 33 g/dL (33-37); MEAN CORPUSCULAR VOLUME 94.6 fL (80-94); MONOCYTES # (AUTO) 0.8 K/uL (0.8-1.0); MONOCYTES % (AUTO) 14.4 % (1.7-9.3); NEUTROPHILS # (AUTO) 3.8 K/uL (1.8-7.7); NEUTROPHILS % (AUTO) 70.9 % (42.2-75.2); PLATELET COUNT (AUTO) 204 K/uL (140-450); RED BLOOD CELL COUNT(AUTO) 3.95 MIL/uL (4.20-6.10); RED CELL DISTRIBUTION WIDTH 17.8 % (11.6-13.7); WHITE BLOOD COUNT (AUTO) 5.4 K/uL (4.8-10.8)
[2021-08-25 08:50] LABS: ANION GAP 16.6 (8-16); CARBON DIOXIDE 27.3 mmol/L (21-32); CHLORIDE 101 mmol/L (98-107); CREATININE 1.6 mg/dL (0.6-1.3); GLUCOSE 101 mg/dL (74-106); POTASSIUM 4.9 mmol/L (3.5-5.1); SODIUM SERUM 140 mmol/L (136-145); UREA NITROGEN, BLOOD 39 mg/dL (7-18)
[2021-08-25] MEDS ORDERED: AZITHROMYCIN 500 MG in DEXTROSE 5% 250 ML IV SCH (09:00)
--- NOTE | 2021-08-25 10:00 | NUR ---
PT AMBULATED TO RESTROOM, STEADY GAIT
--- NOTE | 2021-08-25 11:29 | NUR ---
DR CHOI AT BEDSIDE EXAMINING PT
[2021-08-25] MEDS ORDERED: BUME1TAB92 PO (11:36)
[2021-08-25] MEDS ORDERED: ONDA-188 PO (11:36)
[2021-08-25] MEDS ORDERED: TAMS0.4C97 PO (11:36)
[2021-08-25] MEDS ORDERED: MIDO5TAB4 PO (11:36)
[2021-08-25] MEDS ORDERED: VITD400 PO (11:36)
[2021-08-25] MEDS ORDERED: APIX2.5 PO (11:36)
--- NOTE | 2021-08-25 12:00 | NUR ---
PT C/O 03/05 STOMACH PAIN. MEDICATED WITH TRAMADOL PRN
--- NOTE | 2021-08-25 12:10 | NUR ---
PROVIDED PT WITH LUNCH TRAY
[2021-08-25] MEDS ORDERED: traMADol 50 MG TAB PO PRN (12:20)
[2021-08-25] MEDS ORDERED: POTASSIUM CHLORIDE 10 MEQ TABER PO PRN (12:20)
[2021-08-25] MEDS ORDERED: ONDANSETRON 4 MG ODT PO PRN (12:20)
[2021-08-25] MEDS ORDERED: MAG SULF 2000 MG/WATER PREMIX 50 ML IV PRN (12:20)
--- NOTE | 2021-08-25 14:00 | NUR ---
PT ON ROOM AIR, RESTING IN BED. RESPIRATIONS EVEN AND UNLABORED. CHEST RISE IS SYMMETRICAL. WILL CONTINUE TO MONITOR.
--- NOTE | 2021-08-25 16:30 | NUR ---
PT ON ROOM AIR, RESTING IN BED. RESPIRATIONS EVEN AND UNLABORED. CHEST RISE IS SYMMETRICAL. WILL CONTINUE TO MONITOR.
[2021-08-25] MEDS: carvediloL 6.25 MG TAB PO SCH (17:03)
--- NOTE | 2021-08-25 18:15 | NUR ---
PT ON ROOM AIR, RESTING IN BED. RESPIRATIONS EVEN AND UNLABORED. CHEST RISE IS SYMMETRICAL. WILL CONTINUE TO MONITOR.
--- NOTE | 2021-08-25 19:22 | NUR ---
Pt report given to EVA AVALOS. Transfer of care at this time.
--- NOTE | 2021-08-25 19:32 | NUR ---
pt is awake and alert. pt complains of abd discomfort, denies pain, states he feel sob. pt desats to 88% then raises back to 95%. pt placed on 2L of 02. pt sating at 100%. all needs met at this time. bed locked in lowest position, side rails x2 for safety.
[2021-08-25] MEDS: BUMETANIDE 1 MG TAB PO SCH (21:39)
[2021-08-25] MEDS: APIXABAN 2.5 MG TAB PO SCH (21:39)
[2021-08-25] MEDS: SIMETHICONE 80 MG TAB.CHEW PO SCH (21:40)
[2021-08-25] MEDS: MIDODRINE 5 MG TAB PO SCH (21:40)
[2021-08-25] MEDS: ATORVASTATIN 20 MG TAB PO SCH (21:40)
--- NOTE | 2021-08-25 21:45 | NUR ---
PT IS SITTING UP IN BED. PT DENIES PAIN AND DISCOMFORT. VSS. PT IN STABLE CONDITION. ALL NEEDS MET AT THIS TIME. BED LOCKED IN LOWEST POSITION, SIDE RAILS X2 FOR SAFETY.
--- NOTE | 2021-08-26 00:29 | NUR ---
PT APPEARS TO BE RESTING. EYES ARE CLOSED, OPENS TO SOUND. VSS. PT IN STABLE CONDITION. BED LOCKED IN LOWEST POSITION. SIDE RAILS X2 FOR SAFETY. ALL NEEDS MET AT THIS TIME.
[2021-08-26] MEDS ORDERED: cefTRIAXone 1,000 MG VIAL ONE (01:52)
--- NOTE | 2021-08-26 05:52 | NUR ---
urine bag emptied 400 cc of tawnya urine.
--- NOTE | 2021-08-26 07:13 | NUR ---
Pt report given to nelson day. Transfer of care at this time.
--- NOTE | 2021-08-26 07:16 | NUR ---
Maricruz thompson in [facility] - 08/26/21 at 0717 by MANAV report carolina from ROBBIE farrar for transfer of care
--- NOTE | 2021-08-26 07:18 | NUR ---
report recevied from ROBBIE farrar for transfer of care
[2021-08-26] MEDS: CHOLECALCIFEROL 1,000 IU TAB PO SCH (08:17)
[2021-08-26] MEDS: TAMSULOSIN 0.4 MG CAP PO SCH (08:17)
[2021-08-26] MEDS: BUMETANIDE 1 MG TAB PO SCH (08:17)
[2021-08-26] MEDS: carvediloL 6.25 MG TAB PO SCH ×2 (08:17→17:00)
[2021-08-26] MEDS: ASPIRIN 81 MG TAB.CHEW PO SCH (08:17)
[2021-08-26] MEDS: SIMETHICONE 80 MG TAB.CHEW PO SCH ×2 (08:17→20:40)
[2021-08-26] MEDS: APIXABAN 2.5 MG TAB PO SCH ×2 (08:17→20:40)
[2021-08-26] MEDS: MIDODRINE 5 MG TAB PO SCH ×2 (08:18→20:41)
[2021-08-26] MEDS: PANTOPRAZOLE 40 MG TABEC PO SCH (08:18)
[2021-08-26 09:00] LABS: BASOPHILS % (AUTO) 0.5 % (0.0-2.0); EOSINOPHILS % (AUTO) 0.8 % (0.0-4.0); HEMATOCRIT 35.5 % (36-52); HEMOGLOBIN 11.5 g/dL (12.0-18.0); LYMPHOCYTES # (AUTO) 0.9 K/uL (2.0-11.5); LYMPHOCYTES % (AUTO) 17.3 % (20.5-51.1); MEAN CORPUSCULAR HEMOGLOBIN 31 pg (27-31); MEAN CORPUSCULAR HGB CONC 32 g/dL (33-37); MEAN CORPUSCULAR VOLUME 94.8 fL (80-94); MONOCYTES # (AUTO) 0.7 K/uL (0.8-1.0); MONOCYTES % (AUTO) 12.4 % (1.7-9.3); NEUTROPHILS # (AUTO) 3.6 K/uL (1.8-7.7); PLATELET COUNT (AUTO) 196 K/uL (140-450); RED BLOOD CELL COUNT(AUTO) 3.74 MIL/uL (4.20-6.10); RED CELL DISTRIBUTION WIDTH 17.3 % (11.6-13.7); WHITE BLOOD COUNT (AUTO) 5.3 K/uL (4.8-10.8)
[2021-08-26] MEDS ORDERED: FUROSEMIDE 40 MG/4 ML VIAL IVP SCH (09:00)
[2021-08-26] MEDS ORDERED: BUMETANIDE 1 MG TAB PO SCH ×2 (09:00→21:00)
[2021-08-26] MEDS ORDERED: LOSARTAN 25 MG TAB PO SCH (09:00)
[2021-08-26 09:20] LABS: ANION GAP 13.5 (8-16); CARBON DIOXIDE 29.2 mmol/L (21-32); CHLORIDE 100 mmol/L (98-107); CREATININE 1.9 mg/dL (0.6-1.3); GLUCOSE 91 mg/dL (74-106); POTASSIUM 4.7 mmol/L (3.5-5.1); SODIUM SERUM 138 mmol/L (136-145); UREA NITROGEN, BLOOD 47 mg/dL (7-18)
--- NOTE | 2021-08-26 10:49 | NUR ---
Patient appears to be resting comfortably in bed. Vital Signs within normal limits. Respirations even and unlabored.
[2021-08-26 11:03] LABS: PHOSPHORUS 5.4 mg/dL (2.5-4.9)
[2021-08-26 11:41] LABS: MAGNESIUM 2.7 mg/dL (1.8-2.4)
--- NOTE | 2021-08-26 13:01 | NUR ---
PT PROVIDED WITH LUNCH TRAY BEDSIDE
--- NOTE | 2021-08-26 14:38 | NUR ---
Patient appears to be resting comfortably in bed. Vital Signs within normal limits. Respirations even and unlabored.
--- NOTE | 2021-08-26 17:08 | NUR ---
PT CURRENT BP 81/61 AT THIS TIME. PT PLACED INTO [facility] TO HELP INCREASE BP
--- NOTE | 2021-08-26 17:21 | NUR ---
PATIENT HAS BEEN SCREENED AND CATEGORIZED MODERATE NUTRITION RISK. PATIENT WILL BE SEEN WITHIN 3-5 DAYS OF ADMISSION. /10/[address]
[2021-08-26] MEDS ORDERED: NACL 0.9% 1,000 ML IV SCH (17:55)
--- NOTE | 2021-08-26 17:56 | NUR ---
PT CONTINUES TO STAY HYPOTENSIVE AFTER REPOSITIONING OF CUFF AND PLACING PATIENT INTO [place]. DR. CHOI MADE AWARE AND ORDERED BOLUS AT THIS TIME. IF BOLUS DOES NOT WORK TO START PATIENT ON LEVOPHED DRIP AND TX TO ICU
--- NOTE | 2021-08-26 18:57 | NUR ---
PT PROVIDED WITH WARM BLANKET. VITAL SIGNS CHARTED. WILL CONTINUE TO MONITOR PT STATUS
--- NOTE | 2021-08-26 19:23 | NUR ---
Pt report given to ROBBIE READ. Transfer of care at this time.
--- NOTE | 2021-08-26 19:45 | NUR ---
REPORT RECEIVED FROM STORM GARCIA RN FOR CONTINUITY OF CARE
[2021-08-26] MEDS: BUMETANIDE 1 MG/4 ML VIAL IV SCH (20:39)
[2021-08-26] MEDS: ATORVASTATIN 20 MG TAB PO SCH (20:40)
--- NOTE | 2021-08-26 20:42 | NUR ---
2100 SCHEDULED MEDS ADMINISTERED ORDERED. WILL CONTINUE TO MONITOR.
--- NOTE | 2021-08-26 22:30 | NUR ---
REPORT GIVEN TO LATRELL AVALOS FOR TRANSFER/CONTINUITY OF CARE
--- NOTE | 2021-08-26 22:50 | NUR ---
PT TRANSFERED TO THE FLOOR ROOM 105-B VIA [facility].
[2021-08-26 23:30] VITALS: BP 104/65
--- NOTE | 2021-08-26 23:30 | NUR ---
RECEIVED REPORT FROM ER NURSE OVER THE PHONE, PT BROUGHT UP VIA [email or web address], HE IS AOX3-4 GAMBIAN SPEAKING. HE IS ON 2 LITERS VIA N/C AND HAS A 20G ON THE RIGHT ARM WHICH IS SALINE LOCKED AT THIS TIME. ASKED ADMISSION QUESTIONS VIA [employer] SWING SAW OPERATOR SYSTEM WITH SWING SAW OPERATOR ELIER .MRSA SWAB DONE. V/S FOLLOWS: T 97.1 P 71 R 20 B/P 104/65 02 96% ON 2 LITERS VIA N/C. LUNG SOUNDS CLEAR AND DIMINISHED PT ORIENTED TO ROOM, HE DENIES ANY PAIN OR DISTRESS. ALL ORDERED PRECAUTIONS IN PLACE.
[2021-08-27 04:00] VITALS: BP 92/62
[2021-08-27 07:30] LABS: BASOPHILS % (AUTO) 0.3 % (0.0-2.0); EOSINOPHILS % (AUTO) 0.8 % (0.0-4.0); HEMATOCRIT 35.3 % (36-52); HEMOGLOBIN 11.3 g/dL (12.0-18.0); LYMPHOCYTES # (AUTO) 0.6 K/uL (2.0-11.5); LYMPHOCYTES % (AUTO) 11.3 % (20.5-51.1); MEAN CORPUSCULAR HEMOGLOBIN 30 pg (27-31); MEAN CORPUSCULAR HGB CONC 32 g/dL (33-37); MEAN CORPUSCULAR VOLUME 94.4 fL (80-94); MONOCYTES # (AUTO) 0.6 K/uL (0.8-1.0); MONOCYTES % (AUTO) 10.3 % (1.7-9.3); NEUTROPHILS # (AUTO) 4.4 K/uL (1.8-7.7); NEUTROPHILS % (AUTO) 77.3 % (42.2-75.2); PLATELET COUNT (AUTO) 191 K/uL (140-450); RED BLOOD CELL COUNT(AUTO) 3.74 MIL/uL (4.20-6.10); RED CELL DISTRIBUTION WIDTH 17.6 % (11.6-13.7); WHITE BLOOD COUNT (AUTO) 5.6 K/uL (4.8-10.8)
--- NOTE | 2021-08-27 07:30 | NUR ---
RECEIVED PT CARE AND REPORT FROM LATRELL MARCOS NURSE. PT RESTING IN BED WITH EYES CLOSED, SEMI-FOWLERS. NO S/S OF DISTRESS, DISCOMFORT, PAIN OR SOB. CALL LIGHT WITHIN REACH. WALKER WITHIN REACH. ALL NEEDS HAVE BEEN MET AT THIS TIME
[2021-08-27 07:52] LABS: MAGNESIUM 2.2 mg/dL (1.8-2.4); PHOSPHORUS 4.7 mg/dL (2.5-4.9)
[2021-08-27 07:58] LABS: CHLORIDE 101 mmol/L (98-107); CREATININE 1.5 mg/dL (0.6-1.3); GLUCOSE 81 mg/dL (74-106); POTASSIUM 4.1 mmol/L (3.5-5.1); SODIUM SERUM 140 mmol/L (136-145); UREA NITROGEN, BLOOD 44 mg/dL (7-18)
[2021-08-27 08:00] VITALS: BP 99/58
[2021-08-27] MEDS: carvediloL 6.25 MG TAB PO SCH ×2 (08:00→17:00)
[2021-08-27 08:26] LABS: ANION GAP 15.4 (8-16); CARBON DIOXIDE 27.7 mmol/L (21-32)
--- NOTE | 2021-08-27 08:36 | NUR ---
DR. CHOI TEXTED CONCERNING MEDICATION ADMINISTRATION D/T BP 99/[address] STATED TO HOLD COREG AND OK TO GIVE BUMEX.
--- NOTE | 2021-08-27 08:38 | NUR ---
DR CHOI ALSO STATED TO HOLD PROAMATINE THIS MORNING.
[2021-08-27] MEDS: BUMETANIDE 1 MG/4 ML VIAL IV SCH ×2 (08:40→21:00)
[2021-08-27] MEDS: MIDODRINE 5 MG TAB PO SCH ×2 (08:40→21:09)
[2021-08-27] MEDS: TAMSULOSIN 0.4 MG CAP PO SCH (08:41)
[2021-08-27] MEDS: CHOLECALCIFEROL 1,000 IU TAB PO SCH (08:41)
[2021-08-27] MEDS: SIMETHICONE 80 MG TAB.CHEW PO SCH ×2 (08:41→21:09)
[2021-08-27] MEDS: ASPIRIN 81 MG TAB.CHEW PO SCH (08:41)
[2021-08-27] MEDS: PANTOPRAZOLE 40 MG TABEC PO SCH (08:42)
[2021-08-27] MEDS: APIXABAN 2.5 MG TAB PO SCH ×2 (08:42→21:20)
--- NOTE | 2021-08-27 10:29 | NUR ---
LATE ENTRY- AZITHROMYCIN IV DISCONTINUED AT 2250. ROCEPHIN IV PB DISCONTINUED AT 2250.
[2021-08-27 12:00] VITALS: BP 93/58
[2021-08-27 16:00] VITALS: BP 97/63
--- NOTE | 2021-08-27 17:47 | NUR ---
HELD COREG [address] CHOI ORDER TO HOLD HOME HYPERTENSIVE MEDICATIONS.
--- NOTE | 2021-08-27 18:05 | NUR ---
PT RESTING IN BED WITH EYES CLOSED. NO VISIBLE S/S OF DISTRESS, DISCOMFORT, PAIN OR SOB. CALL LIGHT WITHIN REACH. O2 AT 2L VIA NC ON FACE. IV SITE INTACT WITHOUT REDNESS OR SWELLING. ALL NEEDS HAVE BEEN MET AT THIS TIME. WILL ENDORSE TO NIGHT NURSE.
--- NOTE | 2021-08-27 18:44 | NUR ---
DC PLANNING SW ATTEMPTED TO CONTACT PATIENT'S MARGE GAITAN AT TO DISCUSS AND GATHER PATIENT'S COLLATERAL INFORMATION . PATIENT'S DID NOT RESPONDED AND SW LEFT HER A VOICE MAIL MSG REQUESTING A CALL BACK CHARITO. SW WILL FOLLOW UP NEEDED.
--- NOTE | 2021-08-27 19:20 | NUR ---
RECD. RESTING IN BED, AWAKE, A/OX4. RESPIRATION EVEN AND UNLABORED. ON 02 AT 2 LITERS VIA N/C. IV SALINE LOCK AT THE RIGHT AC G20, PATENT AND INTACT. FALL RISK, USES A WALKER TO AMBULATE. SAFETY MEASURES ENFORCED. BED IN THE LOWEST POSITION, CALL LIGHT IN REACH, BED ON ALARM. F/C TO LEG BAG DRAINING CLEAR YELLOW URINE. DENIES PAIN 0/10.
[2021-08-27 20:00] VITALS: BP 93/55
[2021-08-27] MEDS: ATORVASTATIN 20 MG TAB PO SCH (21:09)
--- NOTE | 2021-08-27 21:09 | NUR ---
SCHEDULED MEDICATIONS ADMINISTERED. BP - 93/55, HR- 88. MEDICATED WITH MIDODRINE PER MD ORDER.
--- NOTE | 2021-08-27 22:20 | NUR ---
MESSAGED DR. LEBRON, BP OF PATIENT INCREASED FROM 93/55 TO 94/57 AFTER GIVING MIDODRINE. INQUIRED IF WE CAN HOLD BUMEX OORDERED HOLD BUMEX AND GIVE ADDITIONAL MIDODRINE 10 MG.
[2021-08-27] MEDS ORDERED: MIDODRINE 5 MG TAB PO ONE (22:30)
[2021-08-27] MEDS ORDERED: MIDODRINE 5 MG TAB PO SCH (22:50)
--- NOTE | 2021-08-28 | NUR ---
BP - 93/64, HR - 81. RESTING COMFORTABLY IN BED, NO COMPLAINT OF PAIN 0/10.
--- NOTE | 2021-08-28 01:50 | NUR ---
ENDORSED TO ROBBIE GOODE FOR CONTINUITY OF CARE.
[2021-08-28 02:50] VITALS: BP 99/60
--- NOTE | 2021-08-28 07:05 | NUR ---
RECEIVED REPORT FROM INSEAM TRIMMING MACHINE OPERATOR NURSE FOR CONTINUITY OF CARE. PT IN BED AT THIS TIME SLEEPING. RESPIRATIONS ARE EVEN AND UNLABORED. NO SIGNS OF DISTRESS NOTED. NO COMPLAINTS OF PAIN OR DISCOMFORT NOTED. CALL LIGHT WITHIN REACH. ALL SAFETY MEASURES IN PLACE. WILL CONTINUE TO MONITOR.
[2021-08-28 08:00] VITALS: BP 98/62
[2021-08-28] MEDS: carvediloL 6.25 MG TAB PO SCH (08:00)
[2021-08-28 08:17] LABS: BASOPHILS % (AUTO) 0.4 % (0.0-2.0); EOSINOPHILS # (AUTO) 0.1 K/uL (0-0.4); EOSINOPHILS % (AUTO) 1.4 % (0.0-4.0); HEMATOCRIT 32.2 % (36-52); HEMOGLOBIN 10.6 g/dL (12.0-18.0); LYMPHOCYTES # (AUTO) 0.8 K/uL (2.0-11.5); LYMPHOCYTES % (AUTO) 15.1 % (20.5-51.1); MEAN CORPUSCULAR HEMOGLOBIN 31 pg (27-31); MEAN CORPUSCULAR HGB CONC 33 g/dL (33-37); MEAN CORPUSCULAR VOLUME 93.5 fL (80-94); MONOCYTES # (AUTO) 0.7 K/uL (0.8-1.0); MONOCYTES % (AUTO) 13.8 % (1.7-9.3); NEUTROPHILS # (AUTO) 3.8 K/uL (1.8-7.7); NEUTROPHILS % (AUTO) 69.3 % (42.2-75.2); PLATELET COUNT (AUTO) 183 K/uL (140-450); RED BLOOD CELL COUNT(AUTO) 3.44 MIL/uL (4.20-6.10); RED CELL DISTRIBUTION WIDTH 17.8 % (11.6-13.7); WHITE BLOOD COUNT (AUTO) 5.4 K/uL (4.8-10.8)
[2021-08-28 08:23] LABS: ANION GAP 12.9 (8-16); CHLORIDE 101 mmol/L (98-107); CREATININE 1.3 mg/dL (0.6-1.3); GLUCOSE 82 mg/dL (74-106); POTASSIUM 3.9 mmol/L (3.5-5.1); SODIUM SERUM 139 mmol/L (136-145); UREA NITROGEN, BLOOD 36 mg/dL (7-18)
[2021-08-28 08:34] LABS: MAGNESIUM 2.1 mg/dL (1.8-2.4); PHOSPHORUS 3.3 mg/dL (2.5-4.9)
[2021-08-28] MEDS: SIMETHICONE 80 MG TAB.CHEW PO SCH (08:42)
[2021-08-28] MEDS: TAMSULOSIN 0.4 MG CAP PO SCH (08:42)
[2021-08-28] MEDS: ASPIRIN 81 MG TAB.CHEW PO SCH (08:42)
[2021-08-28] MEDS: MIDODRINE 5 MG TAB PO SCH (08:43)
[2021-08-28] MEDS: PANTOPRAZOLE 40 MG TABEC PO SCH (08:43)
[2021-08-28] MEDS: CHOLECALCIFEROL 1,000 IU TAB PO SCH (08:43)
[2021-08-28] MEDS: APIXABAN 2.5 MG TAB PO SCH (08:44)
--- NOTE | 2021-08-28 08:44 | NUR ---
ADMINISTERED ALL SCHEDULED MEDICATIONS. EDUCATED PT REGARDING MEDS ADMINISTERED. ANSWERED ALL QUESTIONS. PT TOLERATED WELL. WILL CONTINUE TO MONITOR.
[2021-08-28] MEDS ORDERED: BUME1TAB92 PO (09:25)
[2021-08-28] MEDS ORDERED: APIX2.5 PO (09:25)
[2021-08-28] MEDS ORDERED: MIDO5TAB4 PO (09:29)
[2021-08-28] MEDS: BUMETANIDE 1 MG/4 ML VIAL IV SCH (09:49)
--- NOTE | 2021-08-28 09:49 | NUR ---
IV MEDICATION ADMINISTERED BY ROBBIE.
--- NOTE | 2021-08-28 12:00 | NUR ---
DC PLANNING LATE ENTRY PATIENT IS A 81-YEAR-OLD MALE ADMITTED IN THE [facility]/ED ON 08/25/2021. DUE TO SHORTHNES OF BREATH, PATIENT WAS RECENTLY DIAGNOSED WITH CHF. SW MET PATIENT AND CALLED PATIENT'S AT TO DISCUSS AND GATHER PATIENT'S COLLATERAL INFORMATION. PATIENT'S AND STATED THAT PATIENT LIVES AT HOME WITH HIS ,AND SON IN [facility]. PER PATIENT'S SHE IS HIS EMERGENCY CONTACT AND HIS MEDICAL DECISION MAKER. PATIENT HAS ADVANCE DIRECTIVES ALREADY AND WAS NOT INTERESTED ON GETTING A.D. INFORMATION PACKET PROVIDED BY GUANAKITO. PATIENT'S REPORTED THAT PATIENT'S PRIMARY PCP IS AT [facility] AT AND PATIENT'S LAST VISIT WITH HIS PCP WAS ABOUT A MONTH AGO. SW DISCUSSED WITH PATIENT ABOUT THE IMPORTANCE OF MAKING A FOLLOW UP APPOINTMENT WITH PATIENT'S PCP AFTER HIS DISCHARGE FROM [facility]. PATIENT'S AGREED AND STATED THAT THEY WILL MAKE HIS APPOINTMENT WHEN PATIENT IS DC FROM [facility]. PATIENT'S ALSO REPORTED HAVING NO ISSUES GETTING OR TAKING HIS MEDICATIONS AND REPORTED THAT USUALLY SHE PICKS UP HIS MEDICATION FROM THE [facility] AT [facility]. [facility]. PER PATIENT'S PATIENT HAS A WALKER AND WHEELCHAIR HIS DME. PER PATIENT'S PATIENT WILL RETURN BACK HOME AFTER HIS DC FROM [facility]. PATIENT'S OR SON WILL BE PICKING UP PATIENT AT DISCHARGE. GUANAKITO THANKED HER FOR THE INFORMATION PROVIDED AND WILL FOLLOW UP WITH PATIENT NEEDED. Addendum: 08/29/21 at 1600 by Chuyita SCHMITZ DC PLANNING PATIENT'S MARGE GAITAN CONTACTED THESE INSEAM TRIMMER VIA TELEPHONIC CALL STATING THAT PATIENT'S MEDICATIONS DID NOT COME WITH HIM AT DISCHARGE YESTERDAY. PATIENT'S STATED THAT SHE HAS COME TO [facility] AND CHECK WITH ED AND PATIENT'S NURSE AND THAT SHE WILL HAV E TO POSSIBLY BUY THE MEDICATION AGAIN IF SHE CAN NOT FIND IT. PATIENT'S REPORTED THAT SHE HAS NOT BEEN ABLE TO MAKE PATIENT'S FOLLOW UP APPOINTMENT AND REQUESTED FOR THESE INSEAM TRIMMER TO MAKE PATIENTS APPOINTMENTS. SW AGREED AND ENDED THE CALL. GUANAKITO CALLED PATIENT'S PCP OFFICE AT [facility] TO SCHEDULED A FOLLOW UP APPOINTMENT FOR PATIENT AFTER HIS DC FROM [facility] YESTERDAY. GUANAKITO SPOKE TO RIC WHO PROVIDED A FOLLOW UP APPOINTMENT FOR PATIENT ON 09/05/2021 AT 14:00PM WITH MD. SWAPNA PAYTON AT [address] [facility] [id number]. GUANAKITO SCHEDULED APPT AND ENDED THE CALL. GUANAKITO CALLED PATIENT'S AT TO INFORM HER OF SCHEDULED APPOINTMENT BY THERE INSEAM TRIMMER WITH PCP WITHIN 7 DAYS OF HER DISCHARGE FROM [facility]. GUANAKITO PROVIDED PATIENT'S WITH ALL INFORMATION TIME, DATE AND ADDRESS FOR HIS FOLLOW UP APPOINTMENT. PATIENT'S AGREED TO TAKE PATIENT TO HIS SCHEDULED APPOINTMENT AND THANKED THESE INSEAM TRIMMER FOR THE CALL.
--- NOTE | 2021-08-28 13:26 | NUR ---
PT CALLED AND STATED HE NEEDED ASSISTANCE TO AMBULATE TO REST ROOM. ASSISTED PT. PT TOLERATED WELL. ALSO EMPTIED PT STEVENSON CATHETER, EMPTIED 400CC. WILL CONTINUE TO MONITOR.
[2021-08-28 15:00] VITALS: BP 102/63
--- NOTE | 2021-08-28 17:01 | NUR ---
WENT OVER DISCHARGE PAPERWORK WITH PT. ANSWERED ALL QUESTIONS. PT SIGNED ALL PAPERWORK. REMOVED IV. IV CATHETER INTACT. REMOVED WRIST BAND. ALL BELONGINGS TAKEN UPON DISCHARGE. PT DISCHARGED HOME WITH FAMILY. PT LEFT UNIT VIA WHEELCHAIR.
== END 2021-08-28 16:55 | disposition home or self-care (01) | DRG 133 ==
LOC: MED 23:04 → MTU 08-25 01:43
DX: J96.01 Acute respiratory failure with hypoxia (principal); N17.0 Acute kidney failure with tubular necrosis; I50.43 Acute on chronic combined systolic (congestive) and diastolic (congestive) heart failure; J18.9 Pneumonia, unspecified organism; E44.1 Mild protein-calorie malnutrition; E86.0 Dehydration; D63.8 Anemia in other chronic diseases classified elsewhere; E11.22 Type 2 diabetes mellitus with diabetic chronic kidney disease; E83.39 Other disorders of phosphorus metabolism; E83.41 Hypermagnesemia; I13.0 Hypertensive heart and chronic kidney disease with heart failure and stage 1 through stage 4 chronic kidney disease, or unspecified chronic kidney disease; K21.9 Gastro-esophageal reflux disease without esophagitis; N18.9 Chronic kidney disease, unspecified; I34.0 Nonrheumatic mitral (valve) insufficiency; I25.10 Atherosclerotic heart disease of native coronary artery without angina pectoris; R26.9 Unspecified abnormalities of gait and mobility; J45.909 Unspecified asthma, uncomplicated; N39.0 Urinary tract infection, site not specified; Z20.822 Contact with and (suspected) exposure to COVID-19; Z79.899 Other long term (current) drug therapy; Z85.46 Personal history of malignant neoplasm of prostate; Z79.82 Long term (current) use of aspirin; Z68.25 Body mass index [BMI] 25.0-25.9, adult
CPT/HCPCS: 36415; 71045; 76770; 80048; 80053; 81001; 83735; 83880; 84100; 85025; 87081; 87086; 93005; 96365; 96367; 99291; J0456; J0696; J3370; J3490; J7060; Q0092